=== PATIENT | male | born 1960 | race Caucasian/White ===

== ENCOUNTER 2018-01-31 01:26 | Outpatient (CLI) | payer MEDICAID, SELFPAY ==
[2018-01-31 08:29] LABS: Hemoglobin A1C 5.5 % (4.5-6.2)
[2018-01-31 09:29] LABS: ALT 39 U/L (12-78); AST 24 U/L (15-37); Albumin 3.9 g/dL (3.4-5.0); Alkaline Phosphatase 70 U/L (46-116); Bilirubin, Total 0.6 mg/dL (0.2-1.0); Cholesterol 119 mg/dL (50-200); HDL Cholesterol 41 mg/dL (40-60); LDL CHOLESTEROL 65 mg/dL (<100); Total Protein 6.6 g/dL (6.4-8.2); Triglyceride 111 mg/dL (30-150)
[2018-01-31 09:49] LABS: Bilirubin, Direct 0.14 mg/dL (0.00-0.20)
== END 2018-01-31 01:46 ==
PROVIDERS: PCP Emergency Medicine; Visit Provider Nurse Practitioner Family
DX: E78.2 Mixed hyperlipidemia (principal)
CPT/HCPCS: 36415; 80061; 80076; 83721; 83036

== ENCOUNTER 2018-02-03 00:40 | Outpatient (CLI) | payer MEDICAID, SELFPAY ==
--- NOTE | 2018-02-03 10:25 | MERGE_ITS ---
*[facility]* *[facility]* [address] [place] [address] Date of study: 02/03/2018 Transthoracic Echocardiography M-mode, complete 2D, complete spectral Doppler, and color Doppler *STUDY CONCLUSIONS* Summary: 1. Left ventricle: The cavity size was normal. Wall thickness was increased in a pattern of mild LVH. Systolic function was at the lower limits of normal. The estimated ejection fraction was 50-55%. Wall motion was normal; there were no regional wall motion abnormalities. Findings consistent with diastolic dysfunction. There was no evidence of elevated ventricular filling pressure by Doppler parameters. 2. Ventricular septum: Septal motion showed paradoxical motion consistent with post surgery. 3. Mitral valve: Moderate thickening, consistent with myxomatous proliferation. There was mild regurgitation. 4. Left atrium: The atrium was mildly dilated. 5. Right ventricle: The cavity size was normal. Wall thickness was normal. Systolic function was normal. 6. Right atrium: The atrium was mildly dilated. 7. Tricuspid valve: There was mild-moderate regurgitation. *PATIENT PRESENTATION* Height: 167.6cm ((66in) ) S/D Pressure: 117 / 70 Weight: 81.6kg ((179.6lb) ) BSA: 1.97m^2 Test start time: 10:35 AM. Test stop time: 11:35 AM. PERFORMING Unknown PERFORMING [facility] BRIM IRONER Shelia Ford RT (R)(CT), RDCS ORDERING Samy Hoskins REFERRING Samy Hoskins *PROCEDURE DATA* Procedure information: The patient was identified by two identifiers. This study was interpreted by [facility]. Pertinent images and digital data are archived for permanent storage and are available for subsequent review. No prior study was available for comparison. Study status: Routine. Transthoracic echocardiography. M-mode, complete 2D, complete spectral Doppler, and color Doppler. A Transthoracic Echocardiogram was performed. Scanning was performed from the parasternal, apical, subcostal, and suprasternal notch acoustic windows. Images were obtained using an [id number] cardiac ultrasound machine. Image quality was adequate. Study completion: The patient tolerated the procedure well. There were no complications. History: PMH: CAD. involving coronary bypass graft of [place] heart without angina pectoris. *CARDIAC ANATOMY* Left ventricle: The cavity size was normal. Wall thickness was increased in a pattern of mild LVH. Systolic function was at the lower limits of normal. The estimated ejection fraction was 50-55%. Wall motion was normal; there were no regional wall motion abnormalities. Findings consistent with diastolic dysfunction. There was no evidence of elevated ventricular filling pressure by Doppler parameters. Aortic valve: Trileaflet; mildly thickened leaflets. Mobility was not restricted. Doppler: Transvalvular velocity was within the normal range. There was no stenosis. There was no significant regurgitation. VTI ratio of LVOT to aortic valve: 0.67. Valve area (VTI): 2.4cm^2. Indexed valve area (VTI): 1.2cm^2/m^2. Peak velocity ratio of LVOT to aortic valve: 0.66. Valve area (Vmax): 2.4cm^2. Indexed valve area (Vmax): 1.2cm^2/m^2. Mean velocity ratio of LVOT to aortic valve: 0.71. Valve area (Vmean): 2.5cm^2. Indexed valve area (Vmean): 1.3cm^2/m^2. Mean gradient (S): 4.6mm Hg. Peak gradient (S): 8.3mm Hg. Aorta: Aortic root: The aortic root was normal in size. Ascending aorta: The ascending aorta was normal in size. Mitral valve: Moderate thickening, consistent with myxomatous proliferation. Mobility was not restricted. Doppler: Transvalvular velocity was within the normal range. There was no evidence for stenosis. There was mild regurgitation. Valve area by pressure half-time: 3.8cm^2. Indexed valve area by pressure half-time: 1.9cm^2/m^2. Peak gradient (D): 5.5mm Hg. Left atrium: The atrium was mildly dilated. Right ventricle: The cavity size was normal. Wall thickness was normal. Systolic function was normal. Ventricular septum: Septal motion showed paradoxical motion consistent with post surgery. Pulmonic valve: Structurally normal valve. Doppler: Transvalvular velocity was within the normal range. There was no evidence for stenosis. There was trivial regurgitation. Peak gradient (S): 3.2mm Hg. Tricuspid valve: Structurally normal valve. Doppler: Transvalvular velocity was within the normal range. There was no evidence for stenosis. There was mild-moderate regurgitation. Pulmonary artery: Pulmonary systolic pressure was within the normal range, in the range of 25mm Hg to 30mm Hg. Right atrium: The atrium was mildly dilated. Pericardium: There was no pericardial effusion. Systemic veins: Inferior vena cava: Well visualized. The vessel was patent and normal in size. The respirophasic diameter changes were in the normal range (greater than or equal to 50%). Baseline ECG: Sinus bradycardia. Measurements Left ventricle Value Reference LV ID, ED, PLAX 5.1 cm 3.5 - 6.0 LV ID, ES, PLAX 3.9 cm 2.1 - 4.0 LV PW thickness, ED, PLAX 1.1 cm LV end-diastolic volume, 1-p A2C 73 ml LV ejection fraction, 1-p A2C 52 % LV end-diastolic volume, 1-p A4C 85 ml LV ejection fraction, 1-p A4C 46 % LV e', lateral 0.143 m/sec LV E/e', lateral 8 LV e', medial 0.101 m/sec LV E/e', medial 12 LV e', average 0.122 m/sec LV E/e', average 10 Ventricular septum Value Reference IVS thickness, ED, PLAX 1.2 cm LVOT Value Reference LVOT ID, A-P 2.1 cm LVOT area 3.6 cm^2 LVOT peak velocity, S 0.95 m/sec LVOT mean velocity, S 0.71 m/sec LVOT VTI, S 21.7 cm LVOT peak gradient, S 3.6 mm Hg LVOT mean gradient, S 2.2 mm Hg Stroke volume (SV), LVOT DP 78 ml Stroke index (SV/bsa), LVOT DP 39 ml/m^2 Aortic valve Value Reference Aortic valve peak velocity, S 1.4 m/sec Aortic valve mean velocity, S 1.01 m/sec Aortic valve VTI, S 32.1 cm Aortic mean gradient, S 4.6 mm Hg Aortic peak gradient, S 8.3 mm Hg VTI ratio, LVOT/AV 0.67 Aortic valve area, VTI 2.4 cm^2 Velocity ratio, peak, LVOT/AV 0.66 Aortic valve area, peak velocity 2.4 cm^2 Velocity ratio, mean, LVOT/AV 0.71 Aortic valve area, mean velocity 2.5 cm^2 Aortic valve area/bsa, mean velocity 1.3 cm^2/m^2 Aorta Value Reference Aortic root ID, ED 3.1 cm Ascending aorta ID, A-P, S 3.1 cm RVOT Value Reference RVOT VTI, S 13.6 cm Left atrium Value Reference LA ID, A-P, ES 4.3 cm LA ID/bsa, A-P 2.2 cm/m^2 <=2.2 LA area, ES, A4C 21.7 cm^2 8.8 - 23.4 LA area, ES, A2C 22 cm^2 LA volume/bsa, ES, 1-p A4C 34 ml/m^2 LA volume, ES, 2-p 70 ml LA volume/bsa, ES, 2-p 36 ml/m^2 LA/aortic root ratio 1.4 Mitral valve Value Reference Mitral E-wave peak velocity 1.17 m/sec Mitral A-wave peak velocity 0.53 m/sec Mitral deceleration time 201 ms 150 - 230 Mitral pressure half-time 58 ms Mitral peak gradient, D 5.5 mm Hg Mitral E/A ratio, peak 2.19 Mitral valve area, PHT, DP 3.8 cm^2 Mitral peak LV-LA gradient, S 88.7 mm Hg Mitral maximal regurg velocity, PISA 4.71 m/sec Mitral regurg VTI, PISA 195.5 cm Pulmonary veins Value Reference Pulmonary vein peak velocity, S 0.49 m/sec Pulmonary vein peak velocity, D 0.52 m/sec Pulmonary vein velocity ratio, peak, 0.94 S/D Pulmonary vein A-wave reversal peak 0.34 m/sec velocity Pulmonary vein A-wave reversal 204 ms duration Tricuspid valve Value Reference Tricuspid regurg peak velocity 2.5 m/sec Tricuspid peak RV-RA gradient 25.5 mm Hg Right atrium Value Reference RA area, ES, A4C (H) 21.1 cm^2 8.3 - 19.5 Pulmonic valve Value Reference Pulmonic peak gradient, S 3.2 mm Hg Pulmonic regurg velocity, ED 0.89 m/sec Legend: (L) and (H) trent values outside specified reference range. I have personally reviewed the images and have reviewed and edited the reported findings. Electronically signed by Pieter Sam 02/03/2018 17:17
== END 2018-02-03 01:00 ==
PROVIDERS: PCP Emergency Medicine; Visit Provider Nurse Practitioner Family
DX: I25.810 Atherosclerosis of coronary artery bypass graft(s) without angina pectoris (principal); I50.30 Unspecified diastolic (congestive) heart failure; I51.7 Cardiomegaly; I08.1 Rheumatic disorders of both mitral and tricuspid valves
CPT/HCPCS: 93306

== ENCOUNTER 2018-04-26 06:37 | Emergency (ER) | payer MEDICAID, SELFPAY ==
[2018-04-26] VITALS (43 sets, daily range): BP systolic 114–133; BP diastolic 57–96; PULSE 54–88; RESP 13–18; TEMP 36.4–36.8; O2SAT 93–100
[2018-04-26] MEDS: Lactated Ringers 1,000 ML 200 ML IV (06:55)
[2018-04-26] MEDS: Ondansetron 4 MG/2 ML VIAL IVP (07:08)
--- NOTE | 2018-04-26 07:12 | ED.GENADUL_ITS ---
Discharge Plan Disposition Patient Disposition: HOME Condition: Improving Discharge Details Chief Complaint: Nausea/Vomit/Diar Clinical Impression: Acute viral syndrome Primary Care Provider: Rory Burnett ED Provider: Riley Juarez Home Meds and New Rx's Prescriptions: New ondansetron HCl [Zofran] 4 mg tablet 4 mg PO QID PRN (Reason: nausea and vomiting) Qty: 10 RF: 0 Continue aspirin [Aspirin Low-Strength] 81 MG tablet,chewable 1 tab PO DAILY RF: 0 pantoprazole [Protonix] 40 MG tablet,delayed release (DR/EC) 40 mg PO DAILY Qty: 90 RF: 4 atorvastatin 80 MG tablet 80 mg PO DAILY Qty: 90 RF: 3 metoprolol succinate [Toprol XL] 200 mg tablet extended release 24 hr 100 mg PO DAILY Qty: 90 RF: 3 Discharge Instructions Instructions: Viral Syndrome (ED) Additional Instructions: Home to rest today. Small, frequent sips of fluids to maintain hydration. Zofran as needed for nausea. Return if you do not improve, have worsening symptoms, or any other acute concerns per Medical Decision Making <Hunter Preciado MD - Last Filed: 04/26/18 07:52> Patient presenting with chills, nausea, vomiting with onset of congestion and cough yesterday. He is not febrile here. He is not having any pain. He did not get a flu shot this year. His EKG is without acute changes. Will place IV and give fluids and Zofran. We will send a flu swab. Will check laboratory studies including troponin but I do not think this is likely related to a cardiac event. We will check a chest x-ray due to cough and chills. Patient feels much better after Zofran and fluids. Laboratory studies un remarkable. Troponin negative. Rapid flu swab is negative. Chest x-ray per my review is negative. Pending radiology read. Again, doubt this was cardiac in nature but given his previous history we will do a second troponin to be safe. If negative and patient continues to feel well can be discharged. Patient signed over to Dr. Juarez. Medical Records Medical records reviewed: Yes I reviewed the patient's medical records. Lab Data Lab results reviewed: Yes I reviewed the patient's lab results. ECG Data Attestation: I personally reviewed and interpreted this ECG (s) as follows: Prior ECG tracings: available for review Interpretation: Sinus bradycardia at 57. Normal intervals and axis. Evidence of old inferior infarct. No acute ST changes. Compared to previous EKG no STEMI present. <Riley Juarez MD - Last Filed: 04/26/18 10:24> Received signout from Dr. Preciado. Please see his note regarding details of the history, presentation, plan of care. Patient subjectively felt better, he was able to eat a breakfast meal, his repeat troponin was obtained and negative. Will offer Zofran for home. Patient likely has viral syndrome. Stable for discharge at this time. Return precautions were discussed at the bedside. HPI <Hunter Preciado MD - Last Filed: 04/26/18 07:52> General Mode of arrival: wheelchair . Date/Time Provider Initiated Documentation: 04/26/18 06:53 . Limitations to Documentation: no limitations . Information obtained by: patient . HPI Narrative: Patient presents to ED with chills, nausea, vomiting that started this morning. [place] like he was coming down with a cold yesterday with a little cough and congestion. This morning he woke up and has had nausea and vomiting as well as chills. Does not feel like his cold symptoms are worse. He denies having pain anywhere. He does not feel short of breath. He has had no diarrhea. He did not get a flu shot this year. Related Data Home Medications Medication Instructions Recorded Confirmed aspirin [Aspirin Low-Strength] 1 tab PO DAILY tab-cap 07/20/12 04/26/18 pantoprazole [Protonix] 40 mg PO DAILY #90 tab-cap 04/20/16 04/26/18 atorvastatin 80 mg PO DAILY #90 tab-cap 04/13/17 04/26/18 metoprolol succinate ER 200 mg 100 mg PO DAILY #90 tab-cap 04/14/18 04/26/18 tablet,extended release 24 hr ondansetron HCl [Zofran] 4 mg PO QID PRN #10 tab 04/26/18 Previous Rx's Medication Instructions Recorded atorvastatin 80 mg PO DAILY #90 tab-cap 04/13/17 ondansetron HCl [Zofran] 4 mg PO QID PRN #10 tab 04/26/18 Allergies Allergy/AdvReac Type Severity Reaction Status Date / Time sertraline HCl [From Zoloft] AdvReac Severe vomitting Unverified 04/26/18 06:48 hydrochlorothiazide AdvReac dizziness Unverified 04/26/18 06:48 lisinopril AdvReac cough Unverified 04/26/18 06:48 prednisolone AdvReac bloating Unverified 04/26/18 06:48 simvastatin AdvReac increaseds Unverified 04/26/18 06:48 CK General Stated Complaint: Nausea/Vomit/Diar NAILA: 3 Review of Systems <Hunter Preciado MD - Last Filed: 04/26/18 07:52> Constitutional Reports chills, Denies fever(s), Denies headache(s), Denies malaise and Denies weakness Eyes Denies change in vision, Denies eye discharge, Denies irritation and Denies eye pain ENT Denies otalgia, Denies facial pain, Denies headache(s), Reports nasal congestion, Denies neck pain and Denies sore throat Cardiovascular Denies chest pain, Denies pedal edema, Denies edema, Denies leg edema, Denies lightheadedness, Denies palpitations and Denies dyspnea Respiratory Reports cough and Denies dyspnea Gastrointestinal Denies abdominal pain, Denies diarrhea, Reports nausea and Reports vomiting Genitourinary Denies hematuria, Denies difficulty urinating, Denies dysuria, Denies urinary frequency and Denies urinary urgency Musculoskeletal Denies back pain, Denies myalgias, Denies arthralgias, Denies joint swelling, Denies neck pain and Denies numbness Integumentary/Breasts Denies erythema and Denies rash Neurologic Denies confusion, Denies headache(s), Denies numbness and Denies weakness Psychiatric Denies confusion Endocrine Denies palpitations Exam <Hunter Preciado MD - Last Filed: 04/26/18 07:52> Const General: cooperative, uncomfortable (shivering) and no acute distress Orientation: alert and oriented x3 HENMT Head: normocephalic and atraumatic Mouth: moist mucous membranes Throat: posterior oropharynx abnormal cobblestoning and erythema (mild) Eyes Conjunctivae: conjunctivae normal Pupils: PERRL EOM: EOM intact bilaterally Neck Neck: full ROM, no lymphadenopathy, trachea midline and supple Resp Effort & Inspection: normal respiratory effort Auscultation: clear to auscultation bilaterally Cardio Rate: regular rate Rhythm: regular rhythm Heart Sounds: S1 normal and S2 normal Pulses: normal peripheral pulses GI Inspection: non-distended Palpation: soft, not firm, no guarding and nontender Skin General skin exam: no erythema Rashes: no rashes Trauma: no lacerations or abrasions Other: warm and dry Neuro General: alert, oriented x3, no focal motor deficits and CN's II-XI intact bilaterally Cognition: normal cognition Speech: speech normal Sensory Exam: no sensory deficits noted Extrem General: normal to inspection, full ROM and no clubbing, cyanosis or edema Psych Appearance: grossly normal Mental Status: mental status grossly normal Affect: normal affect Attitude: cooperative Course <Hunter Preciado MD - Last Filed: 04/26/18 07:52> Vital Signs Temperature 97.9 F 04/26/18 06:44 Pulse 74 04/26/18 06:44 Respiratory Rate 18 04/26/18 06:44 Blood Pressure 133/96 H 04/26/18 06:44 Pulse Oximetry 99 04/26/18 06:44 Temperature 97.5 F L 04/26/18 06:51 Temperature Source Oral 04/26/18 06:51 Pulse 74 04/26/18 06:44 Respiratory Rate 18 04/26/18 06:44 Respiratory Effort Non-Labored 04/26/18 06:47 Blood Pressure 133/96 H 04/26/18 06:44 Blood Pressure Position Supine 04/26/18 06:44 Pulse Oximetry 99 04/26/18 06:44 Oxygen Delivery Method Room Air 04/26/18 06:44 Oxygen Flow Rate 0 04/26/18 06:44 Pain Level 0 04/26/18 06:44 Lab/Test Results Lab/Test Results: 04/26/18 07:02 Nasopharynx Influenza Types A,B Antigen - Pending Sign Out <Hunter Preciado MD - Last Filed: 04/26/18 07:52> Sign Out Data: Sign Out Comment: pending second troponin and po challenge Last updated by Hunter Preciado MD at 04/26/18 07:53
[2018-04-26 07:13] LABS: Abs Immature Grans 0.01 k/cumm (0.0-0.09); Absolute Basophil Count 0.03 k/cumm (0.0-0.2); Absolute Eosinophil Count 0.16 k/cumm (0.0-0.7); Absolute Lymphocyte Count 1.87 k/cumm (1.2-3.4); Absolute Monocyte Count 0.51 k/cumm (0.11-0.7); Absolute Neutrophil Count 4.18 k/cumm (1.2-6.7); Basophils % 0.4; Eosinophils % 2.4; HCT 44.4 % (40.0-50.0); HGB 15.5 g/dL (13.5-17.5); Immature Grans % 0.1; Lymphocytes % 27.7; Mean Corp. HGB Concentration 34.9 g/dL (32.0-36.0); Mean Corpuscular Hemoglobin 33.3 pg (27.0-33.0); Mean Corpuscular Volume 95.5 fL (80-95); Monocytes % 7.5; Neutrophils % 61.9; Platelet Count 191 x1000/uL (130-400); RBC 4.65 m/cumm (4.50-6.00); RBC Distribution Width 12.2 % (11.8-14.1); White Blood Cell Count 6.76 k/cumm (4.4-10.8)
--- NOTE | 2018-04-26 07:27 | DI.RAD_ITS ---
SYMPTOM/DIAGNOSIS: COUGH, CHILLS PA AND LATERAL CHEST: Comparison is made with 07 Apr 2017. The heart size is normal. The patient is status post CABG. The lungs are well inflated and clear. No infiltrate or effusion is seen. IMPRESSION: No acute abnormality.
[2018-04-26 07:28] LABS: ALT 42 U/L (12-78); AST 24 U/L (15-37); Albumin 4.2 g/dL (3.4-5.0); Alkaline Phosphatase 67 U/L (46-116); Anion Gap 9.8 mmol/L (3-11); BUN 17 mg/dL (7-18); Bilirubin, Total 0.5 mg/dL (0.2-1.0); CO2 28.2 mmol/L (21.0-32.0); CREATININE 1.01 mg/dL (0.70-1.30); Calcium 8.9 mg/dL (8.5-10.1); Chloride 102 mmol/L (98-107); Glucose 140 mg/dL (70-100); Magnesium 1.8 mg/dL (1.8-2.4); Potassium 3.8 mmol/L (3.5-5.1); Sodium 140 mmol/L (136-145); Total Protein 7.3 g/dL (6.4-8.2)
[2018-04-26 07:30] LABS: Troponin I < 0.02 ng/mL (0.00-0.06)
--- NOTE | 2018-04-26 07:59 | DI.VRAD_ITS ---
EXAM: XR Chest, 2 Views EXAM DATE/TIME: 04/26/2018 7:28 AM CLINICAL HISTORY: 57 years old, male; Signs and symptoms; Cough TECHNIQUE: XR of the chest, 2 views. COMPARISON: CR CHEST 2 VIEWS PA,LAT 04/07/2017 10:32 AM FINDINGS: Lungs: Unremarkable. No consolidation. Pleural space: Unremarkable. No pleural effusion. No pneumothorax. Heart/Mediastinum: Unremarkable. No cardiomegaly. Bones/joints: Median sternotomy wires noted IMPRESSION: No acute findings Dictated and Authenticated by: Higinio Adams MD. Ordering:DANIELE HERNANDEZ MD
--- NOTE | 2018-04-26 09:10 | NUR.NOTE ---
Pt. ambulated to restroom, steady gait in NAD.
[2018-04-26 10:08] LABS: Troponin I < 0.02 ng/mL (0.00-0.06)
== END 2018-04-26 10:37 | disposition home or self-care (01) ==
PROVIDERS: Emergency Medicine; Emergency Provider Emergency Medicine; PCP Emergency Medicine
DX: R11.2 Nausea with vomiting, unspecified (principal); R19.7 Diarrhea, unspecified; R05 Cough; R68.83 Chills (without fever); B34.9 Viral infection, unspecified; I10 Essential (primary) hypertension
CPT/HCPCS: 36415; 80053; 87449; 93005; 96361; 96374; 99285; 71046; 83735; 84484; 85025; 93010; 99284; J2405

== ENCOUNTER 2018-05-16 00:02 | Outpatient (CLI) | payer MEDICAID, SELFPAY ==
--- NOTE | 2018-05-16 08:15 | MERGEMPI_ITS ---
*[facility]* *[facility]* [address] [place] [address] Myocardial Perfusion Imaging - SPECT Fabian protocol Date of study: 05/16/2018 *PATIENT PRESENTATION* Height: 167.6cm (66in) Blood Pressure: Weight: 78.6kg (173lb) BSA: 1.93m^2 Referring physician: Kenroy Bose Ordering physician: Kenroy Bose Impressions: - Abnormal study after maximal exercise. - Small ischemia suggested. - Abnormal contraction consistent with cardiomyopathy. Summary: 1. Myocardial perfusion imaging: There is a small sized, moderately intense, predominantly reversible defect involving the basal inferior wall(s). This suggests small ischemia in the distribution of the right coronary artery. Overall ischemia: small. 2. The calculated left ventricular ejection fraction after stress: 40%. Diffuse left ventricular regional motion abnormalities. There is moderate hypokinesis involving the septal wall(s) of the left ventricle. Indication: R06.02. History: REASON FOR VISIT: EXERTIONAL SHORTNESS OF BREATH. PT HAS A HISTORY OF TX WITH CARDIAC STENTS X2 IN 2007 AND CABG IN 2016. HE IS A FORMER SMOKER, QUIT 25 YEARS AGO. Risk factors: FORMER SMOKER FOR 25 YEARS. QUIT 25 YEARS AGO. Family history of coronary artery disease. Hypertension. Dyslipidemia. Cholesterol: 119mg/dl. HDL: 41mg/dl. LDL: 65mg/dl. Triglycerides: 111mg/dl. ALLERGIES: ZOLOFT. HYDROCHLOROTHIAZIDE. LISINOPRIL. PREDNISOLONE. SIMVASTATIN. MEDICATIONS: ATORVASTATIN 80 MG AT HS. METOPROLOL SUCCINATE 100 MG DAILY. ASPIRIN 81 MG DAILY. PANTOPRAZOLE 40 MG DAILY PRN. Imaging Technique: Protocol: Fabian protocol. Acquisition: Gated SPECT; 1 day - rest/stress. The patient was imaged in the supine position. Attenuation correction used. Isotope administration: - Rest. Tc[99m]-sestamibi. Dose: 10.5mCi. Injection time: 08:15 AM. Injection to stress time: 00:45. - Stress. Tc[99m]-sestamibi. Dose: 29.3mCi. Injection time: 10:30 AM. 1-2 min before end of exercise Baseline ECG: SINUS RHYTHM. HR 72 BPM. Stress protocol: + +---+ + !Stage !HR !BP (mmHg) ! + +---+ + !Baseline supine !72 !132/70 (91) ! + +---+ + !Baseline standing !83 !132/74 (93) ! + +---+ + !Stage I; 1.7mph, 10degrees; 3 min !106!140/76 (97) ! + +---+ + !Stage II; 2.5mph, 12degrees; 3 min !128!142/84 (103)! + +---+ + !Stage III; 3.4mph, 14degrees; 3 min!162!160/76 (104)! + +---+ + !Peak stress !164! ! + +---+ + !Recovery; 1 min !118!162/74 (103)! + +---+ + !Recovery; 3 min !89 !150/70 (97) ! + +---+ + !Recovery; 6 min !87 !138/70 (93) ! + +---+ + * Stress results: Maximal heart rate during stress was 164bpm (101% of maximal predicted heart rate). The maximal predicted heart rate was 162bpm. The rate-pressure product for the peak heart rate and blood pressure was 65814ok Hg/min. Stress ECG: TREADMILL PORTION OF STRESS TEST ENDED IN HEART RATE AND BLOOD PRESSURE RESPONSE TO STRESS TEST MAX HR = 164 % OF TARGET = 101 RARE PVCs. Q-WAVES PRESENT & PROMINENT IN INFERIOR LEADS. APPROXIMATE METS ACHIEVED = 10.16 NO ANGINA NO SIGNIFICANT ST SEGMENT CHANGES AVERAGE FUNCTIONAL CAPACITY FOR EXERCISE. Myocardial perfusion: Imaging information: gated. There is a small sized, moderately intense, predominantly reversible defect involving the basal inferior wall(s). This suggests small ischemia in the distribution of the right coronary artery. Overall ischemia: small. Ventricular Function (Wall Motion): The calculated left ventricular ejection fraction after stress: 40%. Diffuse left ventricular regional motion abnormalities. There is moderate hypokinesis involving the septal wall(s) of the left ventricle. Study data: Mikhail Chapman MD supervised and was readily available during the procedure. This study was interpreted by [facility]. Study status: Routine. Consent: The risks, benefits, and alternatives to the procedure were explained to the patient and informed consent was obtained. Procedure: Initial setup. A baseline ECG was recorded. Surface ECG leads and manual cuff blood pressure measurements were monitored. Heart sounds: Normal. Lung sounds: Normal. Treadmill exercise testing was performed using the Fabian protocol. Study completion: All catheters inserted during the procedure were removed. The patient tolerated the procedure well and was discharged from the lab. Discharge: The patient left the laboratory in stable condition. Birthdate: Patient birthdate: 1960. Sex: Gender: male. Study date: Study date: 05/16/2018. Study time: 08:15 AM. Electronically signed by Mikhail Chapman MD 05/16/2018 16:48
== END 2018-05-16 00:22 ==
PROVIDERS: PCP Emergency Medicine; Visit Provider Internal Medicine Cardiovascular Disease
DX: R06.02 Shortness of breath (principal); I10 Essential (primary) hypertension; R94.30 Abnormal result of cardiovascular function study, unspecified; E78.5 Hyperlipidemia, unspecified; I42.9 Cardiomyopathy, unspecified; I25.2 Old myocardial infarction; Z95.1 Presence of aortocoronary bypass graft; Z82.49 Family history of ischemic heart disease and other diseases of the circulatory system
CPT/HCPCS: 78452; 93016; 93018; 93017

== ENCOUNTER 2019-05-26 07:00 | Outpatient (CLI) | payer MEDICAID, SELFPAY ==
[2019-05-26 13:11] LABS: Anion Gap 7.8 mmol/L (3-11); BUN 17 mg/dL (7-18); CO2 28.2 mmol/L (21.0-32.0); CREATININE 0.95 mg/dL (0.70-1.30); Calculated LDL 89 mg/dL; Chloride 106 mmol/L (98-107); Cholesterol 148 mg/dL (<200); Glucose 88 mg/dL (74-106); HDL Cholesterol 42 mg/dL (40-60); Potassium 4.1 mmol/L (3.5-5.1); Sodium 142 mmol/L (136-145); Triglyceride 86 mg/dL (<150)
== END 2019-05-26 07:20 ==
PROVIDERS: PCP Emergency Medicine; Visit Provider Emergency Medicine
DX: I10 Essential (primary) hypertension (principal); I25.10 Atherosclerotic heart disease of native coronary artery without angina pectoris
CPT/HCPCS: 36415; 80048; 80061

== ENCOUNTER 2020-05-31 02:23 | Outpatient (CLI) | payer MEDICAID, SELFPAY ==
[2020-05-31 10:37] LABS: HCT 43.1 % (40.0-50.0); MCH 32.9 pg (27.0-33.0); MCHC 34.8 % (32.0-36.0); MCV 94.5 fL (80-95); MPV 8.6 fL (8.0-11.0); Platelet Count 202 10^3/uL (130-400); RBC 4.56 10^6/uL (4.36-5.78); RDW 11.9 % (11.8-14.1); RDW-SD 41.1 fL; WBC 7.12 10^3/uL (4.4-10.8)
[2020-05-31 11:23] LABS: Calculated LDL 84 mg/dL (<100); Cholesterol 154 mg/dL (<200); HDL Cholesterol 48 mg/dL (40-60); Triglyceride 112 mg/dL (<150)
== END 2020-05-31 02:43 ==
PROVIDERS: PCP Emergency Medicine; Visit Provider Emergency Medicine
DX: I25.10 Atherosclerotic heart disease of native coronary artery without angina pectoris (principal); M54.5 Low back pain; M47.816 Spondylosis without myelopathy or radiculopathy, lumbar region
CPT/HCPCS: 36415; 80061; 85027; 72110

== ENCOUNTER 2020-05-31 04:44 | Outpatient (CLI) | payer MEDICAID, SELFPAY ==
--- NOTE | 2020-05-31 06:30 | DI.RAD_ITS ---
EXAM: XR LUMBAR SPINE COMPLETE CLINICAL HISTORY: chronic low back pain,M54.5. TECHNIQUE: 2D digital imaging was performed. COMPARISON: CR LUMBAR SPINE COMPLETE from 04/07/2017 FINDINGS: There is mild scoliosis convex right again noted. There is no evidence compression fracture. There is mild degenerative anterolisthesis of L4 upon L5 and mild disc space narrowing at this level noted as well as anterior osseous lipping. There is mild disc space narrowing and anterior osseous lipping also evident at L5-S1. Other disc spaces maintain normal height blood with multilevel anterior osseous lipping. There is no significant facet arthrop athy. Sacroiliac joints appear unremarkable. IMPRESSION: Further progression of degenerative disc disease when compared to 2017. Also mild degenerative anter olisthesis of L4 upon L5, seen on the lateral view. If clinically indicated flexion and extension la teral views can be performed to determine the true amount of anterior slippage of L4 upon L5 during e veryday activities. DATA REPOSITORY: RADIATION DOSE DELIVERED:
== END 2020-05-31 05:04 ==
PROVIDERS: PCP Emergency Medicine; Visit Provider Emergency Medicine
DX: G89.29 Other chronic pain (principal); M54.5 Low back pain; M47.816 Spondylosis without myelopathy or radiculopathy, lumbar region; M43.16 Spondylolisthesis, lumbar region
CPT/HCPCS: 72110

== ENCOUNTER 2020-08-06 02:10 | Outpatient (CLI) | payer MEDICAID, SELFPAY ==
--- NOTE | 2020-08-06 06:45 | DI.MRI_ITS ---
EXAM: MR LUMBAR SPINE WO CLINICAL HISTORY: Symptomatic spondylolisthesis,m43.10. TECHNIQUE: Multiplanar multisequence MRI of the Lumbar spine was performed. COMPARISON: CR XR LUMBAR SPINE COMPLETE from 05/31/2020 FINDINGS: Bones: The last intervertebral disc space is designated the L5/S1 level for the numbering purpose of this examination. The vertebral body heights are well maintained. There is a mild right convex scol iosis. There are endplate degenerative signal changes at multiple levels of the lumbar spine. Cord: The conus tip ends at the L1 level. It is of normal size and signal intensity. T12-L1: No disc herniations or bulges are present. No central spinal canal or neural foraminal stenos is. L1-2: No disc herniations or bulges are present. No central spinal canal or neural foraminal stenosis . L2-3: There is a mild diffuse disc bulge. No central spinal canal or neural foraminal stenosis. L3-4: There is a diffuse disc bulge. There are hypertrophic changes of the facets. There is mild na rrowing of the central spinal canal. There is mild narrowing of the left neural foramen. No signifi cant right neural foraminal stenosis is present. L4-5: There is a diffuse disc bulge. There are hypertrophic changes of the facets. There is mild na rrowing of the central spinal canal. No significant right neural foraminal stenosis is seen. There is moderate left neural foraminal stenosis. L5-S1: There is a diffuse disc bulge eccentric to the right. There are hypertrophic changes of the f acets. No significant central spinal canal stenosis is seen. Mild right neural foraminal stenosis i s present. No significant left neural foraminal stenosis is seen. Soft tissues: The visualized SI joints and sacrum are well maintained. The paraspinal soft tissues ar e unremarkable. IMPRESSION: Multilevel degenerative changes in the lumbar spine. Findings result in multilevel central spinal ca nal and neural foraminal narrowing as described. DATA REPOSITORY:
== END 2020-08-06 02:30 ==
PROVIDERS: PCP Emergency Medicine; Visit Provider Emergency Medicine
DX: M47.816 Spondylosis without myelopathy or radiculopathy, lumbar region (principal); M48.061 Spinal stenosis, lumbar region without neurogenic claudication
CPT/HCPCS: 72148

== ENCOUNTER 2020-10-24 01:53 | Outpatient (CLI) | payer MEDICAID, SELFPAY ==
--- NOTE | 2020-10-24 | DI.MRI_ITS ---
Exam(s) MR PELVIS WO EXAM: MR PELVIS WO CLINICAL HISTORY: RT HIP PAIN,M25.551,NEG HIP MANEUVER TECHNIQUE: Multiplanar multisequence MRI of Pelvis was performed. . COMPARISON: CR LUMBAR SPINE COMPLETE from 04/07/2017 CR LUMBAR SPINE COMPLETE from 04/07/2017 CR XR LUMBAR SPINE COMPLETE from 05/31/2020 CR XR LUMBAR SPINE COMPLETE from 05/31/2020 MR MR LUMBAR SPINE WO from 08/06/2020 MR MR LUMBAR SPINE WO from 08/06/2020 FINDINGS: Bones: There is no fracture or contusion pattern. No significant joint effusion. The SI joints are unremarkable. There is mild edema at the pubic symphysis but no evidence of widening. There are deg enerative changes and a small amount of surrounding soft tissue edema. Musculotendinous structures: Musculotendinous structures demonstrate no evidence of tear. Degenerative changes are noted in the lumbar bar spine. Intrapelvic structures demonstrate no significant abnormality. Small bilateral hydroceles are incidentally noted. There is a small amount of fat in both inguinal c anals. IMPRESSION: Mild amount of edema around the pubic symphysis and degenerative spurring.. Right hip unremarkable. Degenerative changes of the lower lumbar spine. DATA REPOSITORY:
== END 2020-10-24 02:13 ==
PROVIDERS: PCP Emergency Medicine; Visit Provider Neurological Surgery
DX: M25.551 Pain in right hip (principal); R60.0 Localized edema; M79.89 Other specified soft tissue disorders
CPT/HCPCS: 72195

== ENCOUNTER 2021-01-15 08:44 | Outpatient (REF) | payer MEDICAID, SELFPAY ==
[2021-01-22 00:20] LABS: Calprotectin 33.3 mcg/g
== END 2021-01-15 08:45 | disposition home or self-care (01) ==
LOC: LBN 08:44
PROVIDERS: PCP Emergency Medicine; Visit Provider Internal Medicine
DX: M79.641 Pain in right hand (principal); M79.642 Pain in left hand; M25.531 Pain in right wrist; M25.532 Pain in left wrist; R19.7 Diarrhea, unspecified
CPT/HCPCS: 83993

== ENCOUNTER 2021-07-25 03:59 | Outpatient (CLI) | payer MEDICAID, SELFPAY ==
[2021-07-25 09:01] LABS: ALT 30 U/L (16-63); Anion Gap 9.3 mmol/L (3-11); BUN 16 mg/dL (7-18); CO2 24.7 mmol/L (21.0-32.0); Calcium 8.9 mg/dL (8.5-10.1); Calculated LDL 70 mg/dL (<100); Chloride 106 mmol/L (98-107); Cholesterol 135 mg/dL (<200); Glucose 109 mg/dL (74-106); HDL Cholesterol 38 mg/dL (40-60); Potassium 4.3 mmol/L (3.5-5.1); Sodium 140 mmol/L (136-145); Triglyceride 137 mg/dL (<150)
[2021-07-25 18:22] LABS: PSA, Screening 0.3 ng/mL (0.0-4.5)
[2021-07-26 09:54] LABS: HIV-1/2 Ag & Ab Screen Negative (Negative)
[2021-07-28 11:46] LABS: Hepatitis C Ab w Rflx HCV PCR Negative (Negative)
== END 2021-07-25 04:00 | disposition home or self-care (01) ==
LOC: LBO 04:00
PROVIDERS: PCP Family Medicine; Visit Provider Family Medicine
DX: E78.5 Hyperlipidemia, unspecified (principal); I25.10 Atherosclerotic heart disease of native coronary artery without angina pectoris; Z11.59 Encounter for screening for other viral diseases; Z12.5 Encounter for screening for malignant neoplasm of prostate; Z11.4 Encounter for screening for human immunodeficiency virus [HIV]
CPT/HCPCS: 36415; 80048; 80061; 84153; 86803; 87389; 84460

== ENCOUNTER 2021-11-02 10:41 | Emergency (ER) | payer MEDICAID, SELFPAY ==
[2021-11-02 10:47] VITALS: BP 123/80; PULSE 80; RESP 16; TEMP 36.8; O2SAT 97
--- NOTE | 2021-11-02 10:54 | W.ED.GENAD ---
Discharge Plan Disposition Patient Disposition: HOME Condition: Stable Discharge Details Clinical Impression: Laceration of left thumb Primary Care Provider: Angelita Rasheed ED Provider: Veronique Costa Home Meds and New Rx's Prescriptions: New cephalexin 500 mg tablet 500 mg PO BID 7 Days Qty: 14 0RF No Action aspirin [Aspirin Low-Strength] 81 MG tablet,chewable 1 tab PO DAILY atorvastatin 80 mg tablet 80 mg PO DAILY Qty: 90 3RF omeprazole 40 mg capsule,delayed release(DR/EC) 40 mg PO DAILY Qty: 90 3RF Discharge Instructions Instructions: Laceration (ED) Additional Instructions: Have sutures removed in 7 to 10 days. Keep the dressing on for the rest of the day. After 12 to 24 hours you may wash under running soap and water. No soaking or swimming. Keep clean and dry as much as possible. Allowed to air dry at least 1 to 2 hours a day. Take antibiotic twice daily as directed for the next 7 days. Your first dose here. You are also given a tetanus vaccination. Return sooner for any signs of infection, red streaks, swelling drainage or any concerns. Referrals: Angelita Rasheed NP [Primary Care Provider] - Return if symptoms worsen Discharge Data Discharge Date/Time-TO BE ENTERED AT DEPARTURE: 11/02/21 12:35 Medical Decision Making <Veronique Costa NP - Last Filed: 11/02/21 16:18> 61-year-old male presents to the ER with chief complaint left thumb laceration which occurred approximately hour prior to arrival while cooking including chickens. Patient reports that he was holding the knife with his right hand and accidentally stabbed his left thumb with a knife. Last tetanus vaccination according to our records was approximately 10 years ago. He attempted to sew the laceration himself with a needle and thread at home and have a neighbor superglue it which was unsuccessful. They were unable to control the bleeding. Does have venous ooze noted upon arrival. There is a dressing that he placed. Bleeding is controlled with pressure. No other associated symptoms or complaints at this time. He does take a low-dose baby aspirin daily. Approximately 1 cm laceration noted to the lateral aspect of his distal left thumb just adjacent to the nail. No nail involvement. Bleeding was controlled with a turnicot, for sided ring block initiated prior to turnicot application. Thumb was extensively cleaned and superglue was removed in personality. 6 simple interrupted sutures placed. Patient reports that he is planning on going back to the chickens and the treatment chickens after he leaves here. Xeroform gauze and pressure dressing was applied post repair. Wound was well approximated and some low venous ooze noted after turnicot removal. Hemostasis was achieved prior to discharge. Patient was given a tetanus vaccination while here in the department and placed on cephalexin twice daily x7 days. Discussed home care strict return instructions and follow-up verbalized understanding. Range of motion intact prior to procedure and postprocedure. <Clayton Trammell MD - Last Filed: 11/02/21 12:07> Note: Patient seen, examined, and discussed with MARCI Moya. I agree with treatment plan as discussed/documented. HPI <Veronique Costa NP - Last Filed: 11/02/21 16:18> General Mode of arrival: ambulatory. Date/Time Provider Initiated Documentation: 11/02/21 10:43. Limitations to Documentation: no limitations. Information obtained by: patient, RN notes reviewed and old records reviewed. HPI Narrative: 61-year-old male presents to the ER with chief complaint left thumb laceration which occurred approximately hour prior to arrival while cooking including chickens. Patient reports that he was holding the knife with his right hand and accidentally stabbed his left thumb with a knife. Last tetanus vaccination according to our records was approximately 10 years ago. He attempted to sew the laceration himself with a needle and thread at home and have a neighbor superglue it which was unsuccessful. They were unable to control the bleeding. Does have venous ooze noted upon arrival. There is a dressing that he placed. Bleeding is controlled with pressure. No other associated symptoms or complaints at this time. He does take a low-dose baby aspirin daily. Related Data Home Medications Medication Instructions Recorded Confirmed aspirin 81 mg chewable tablet 1 tab PO DAILY 07/20/12 11/02/21 (Aspirin Low-Strength) atorvastatin 80 mg tablet 80 mg PO DAILY #90 tab-caps 03/10/21 11/02/21 omeprazole 40 mg capsule,delayed 40 mg PO DAILY #90 caps 04/29/21 11/02/21 release cephalexin 500 mg tablet 500 mg PO BID 7 days #14 tabs 11/02/21 Previous Rx's Medication Instructions Recorded atorvastatin 80 mg tablet 80 mg PO DAILY #90 tab-caps 03/10/21 omeprazole 40 mg capsule,delayed 40 mg PO DAILY #90 caps 04/29/21 release cephalexin 500 mg tablet 500 mg PO BID 7 days #14 tabs 11/02/21 Allergies Allergy/AdvReac Type Severity Reaction Status Date / Time lactose Allergy Verified 11/02/21 10:51 sertraline HCl [From Zoloft] AdvReac Severe vomitting Verified 11/02/21 10:51 hydrochlorothiazide AdvReac dizziness Verified 11/02/21 10:51 lisinopril AdvReac cough Verified 11/02/21 10:51 prednisolone AdvReac bloating Verified 11/02/21 10:51 simvastatin AdvReac increaseds Verified 11/02/21 10:51 CK General Stated Complaint: Laceration NAILA: 4 Review of Systems <Veronique Costa NP - Last Filed: 11/02/21 16:18> Integumentary/Breasts Skin/Breast: Reports as per HPI and Reports wounds PFSH <Veronique Costa NP - Last Filed: 11/02/21 16:18> All Active Problems (Updated 11/02/21 @ 11:45 by Veronique Costa NP) Laceration of left thumb (Acute) COVID-19 (Acute) 2020-associated with loss of taste and smell BRET (obstructive sleep apnea) (Chronic) Sensorineural hearing loss (SNHL) of both ears (Acute) Lactose intolerance (Acute) Spondylolisthesis (Acute) Dysphagia (Acute) Endoscopy at [facility] Low back pain (Acute) althetic pubalgia, on my back-pain clinic at [facility]-status post multiple ablations which have been helpful, little benefit with physical therapy in the past Migraine with aura (Acute) Hyperlipidemia (Chronic 07/20/12) History of tobacco use (Acute) Gastroesophageal reflux disease (Chronic) Essential hypertension (Chronic 04/10/13) Colonoscopy refused (Acute 01/02/15) Atherosclerosis of koi coronary artery (Chronic) stent x 2 2006 IMI 04/01. RCA dissection during cath procedure 2 vessel CABG 04/02/16. LV wall hypokinesis EF 50-55% Medical History (Updated 11/02/21 @ 11:45 by Veronique Costa NP) Dysphagia Heart attack 2006 Surgical History Rotator Cuff Repair 2008;JULIAN S/P CABG (coronary artery bypass graft) Stent placement 2006; [facility];X2 Family History Mother , 72 Essential hypertension Hyperlipidemia Stroke Brain aneurysm Father , 88 Essential hypertension Heart disease Sister Essential hypertension Hyperlipidemia Brother Essential hypertension Hyperlipidemia Grandfather Stroke Daughter No problems noted. Social History (Updated 01/07/21 @ 15:38 by Kristi Smith) Smoking/Tobacco Use Status: Former Tobacco Use tobacco type: cigarettes Quit Date: 05/17/94 Tobacco: How many years used: 26 Second Hand Exposure: Yes Smoking risk assessment performed?: Yes Alcohol Intake: former Drug use: Occasionally Substance use type: marijuana Household members: spouse Housing: house Number of Children: 1 Communication Needs: Hard of Hearing and Corrective Lenses Do you need help understanding health information?: Always Pets and animals: Yes Pets and animals: cat(s) and dog(s) Sexually active: Yes Do you think of yourself as: straight/heterosexual Current gender identity: male What is your relationship status?: How often do you talk on the phone with friends or family?: once per week How often do you get together with friends or relatives?: once per week Do you belong to any clubs or organized social groups?: no Panel score (0-1 are the most socially isolated patients): 1 Duration: < 15 minutes/day Elinor/Rastafari: None Special elinor needs: No Seatbelt use: never Helmet use: Yes Helmet use: sometimes Drive intox or ride w/intox 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 1 cm laceration noted with flap, and slow venous bleeding. Surrounded by superglue, removed with scraping and petroleum. Course <Veronique Costa NP - Last Filed: 11/02/21 16:18> Vital Signs Vital signs: Vital Signs Temperature 36.8 C 11/02/21 10:47 Pulse 80 11/02/21 10:47 Respiratory Rate 16 11/02/21 10:47 Blood Pressure 123/80 11/02/21 10:47 Pulse Oximetry 97 11/02/21 10:47 Temperature 36.8 C 11/02/21 10:47 Pulse 80 11/02/21 10:47 Respiratory Rate 16 11/02/21 10:47 Respiratory Effort 11/02/21 10:51 Blood Pressure 123/80 11/02/21 10:47 Blood Pressure Position Sitting 11/02/21 10:47 Pulse Oximetry 97 11/02/21 10:47 Oxygen Delivery Method Room Air 11/02/21 10:47 Oxygen Flow Rate 0 11/02/21 10:47 Procedures <Veronique Costa NP - Last Filed: 11/02/21 16:18> Laceration Laceration 1: Site: hand Side (If applicable): left Size (cm): 1 Description: flap, irregular and contaminated Depth: simple, single layer Local Anesthetic: Lidocaine 1% and Bupivicaine 0.5% Amount of anesthesia used (mL): 4 Pre-repair: wound explored, irrigated extensively, deep structures intact and extensive debridement (Super Glue previously and pt attempted to sew lac) Skin layer closed with: nylon (Prolene) Size (cm): 5-0 Number of sutures: 6 Technique: simple, interrupted
[2021-11-02] MEDS: Cephalexin 500 MG CAP PO (11:14)
[2021-11-02] MEDS: Cephalexin 500 MG CAP, 2 CAPS/BTL PO (11:18)
[2021-11-02 11:52] VITALS: BP 136/82; PULSE 72; RESP 18; TEMP 37; O2SAT 98
== END 2021-11-02 12:35 | disposition home or self-care (01) ==
PROVIDERS: Emergency Provider Registered Nurse Emergency; PCP Nurse Practitioner
DX: S61.012A Laceration without foreign body of left thumb without damage to nail, initial encounter (principal); W26.0XXA Contact with knife, initial encounter
CPT/HCPCS: 12001; 90471

== ENCOUNTER 2022-05-19 08:24 | Observation (INO) | payer MEDICAID, SELFPAY ==
[2022-05-19] VITALS (42 sets, daily range): BP systolic 118–151; BP diastolic 75–97; PULSE 63–85; RESP 12–20; TEMP 36.6–37; O2SAT 94–99
--- NOTE | 2022-05-19 | DI.US_ITS ---
APPROVED REPORT EXAM: Comprehensive 2D, Doppler, and color-flow Echocardiogram Patient Location: In-Patient Room/Bed: [facility] Program Manager: Rosemary Chen RDCS (AE) Indications: Syncope, CAD, HTn, h/op smoking, CABG Other Information Study Quality: Adequate Conclusion Normal left ventricular wall thickness and chamber size. Estimated ejection fraction is 55%. There are no segmental wall motion abnormalities Normal right ventricular size and systolic function Both atria are normal in size There are no structural valvular abnormalities Mild mitral regurgitation Estimated right ventricular systolic pressure is 26 mmHg Wall motion Left Ventricle The left ventricle is normal size. The left ventricular systolic function is normal. The left ventric ular ejection fraction is within the normal range. There is normal left ventricular wall thickness. T here is normal LV segmental wall motion. There is no ventricular septal defect visualized. LVEF is 55 %. Right Ventricle The right ventricle is normal size. The right ventricular systolic function is normal. The RVSP is 26 .2 mmHg. Atria The left atrium size is normal. The right atrium size is normal. The interatrial septum is intact wit h no evidence for an atrial septal defect. Aortic Valve The aortic valve is normal in structure. Aortic valve is trileaflet. There is no aortic valvular sten osis. No aortic regurgitation is present. Mitral Valve The mitral valve is normal in structure. No evidence of mitral valve stenosis. Mild mitral regurgitat ion. Tricuspid Valve The tricuspid valve is normal in structure. There is no tricuspid valve stenosis. Trace tricuspid reg urgitation. Pulmonic Valve The pulmonary valve is normal in structure. There is no pulmonic valvular stenosis. Trace pulmonic re gurgitation. Great Vessels The aortic root is normal in size. Ascending aorta is not well visualized. Ascending aorta is not wel l visualized. IVC is normal in size and collapses >50% with inspiration. Pericardium There is no pericardial effusion. 2D Dimensions IVSD d PLAX 0.96 cm M: 0.6-1.2 LV Vol A2C d MOD 84.2 mL LVPW d PLAX 0.90 cm M: 0.6 - 1.2 LV Vol A4C d MOD 110.9 mL LVID d PLAX 5.12 cm M: 4.2 - 5.8 LA vol/ BSA A2C s A-L 24.5 mL/m2 LVDs 3.70 cm M: 2.5 - 4.0 LA vol/ BSA A4C s A-L 34.4 mL/m2 Ao Root d 3.03 cm M: 3.1 - 3.7 LA Vol/ BSA Biplane s A-L 30.3 mL/m2 RA Area A4C 18.74 cm2 LA Area A4C s MOD 21.81 cm2 RA Vol/ BSA A4C s A-L 27.8 mL/m2 LA Area A2C s MOD 17.62 cm2 LV EF Teichholz 52.2 % LV EF A4C MOD 50.4 % LVEF (Junior's) 52.64 % M: 52 - 72 LV EF A2C MOD 54.8 % LV Volume 75.01 mL M: 62 - 150 LV EF Biplane MOD 52.6 % LV Volume Index 39.27 mL/m2 M: 34 - 74 SV 51.85 mL LV Vol Biplane MOD 98.5 mL SV Index 27.11 mL/m2 FS 26.85 % M-Mode TAPSE 1.47 cm (M/F) >1.7 LV Diastology MV E' medial 0.105 (>0.07 m/s) E/A Ratio 1.0 LV E/e MED 10.00 (<14) MV E Vmax 1.05 (0.4-1.3 m/s) MV E' lateral 0.084 (>0.1 m/s) MV A Vmax 1.00 (0.4-1.3 m/s) LV E/e LAT 12.45 (<14) MV E/A Ratio 1.01 MV E/E' medial 10.03 MV E/E' lateral 12.50 Aortic Valve LVOT Area 3.73 cm2 AoV Area Vmax 2.60 cm2 LVOT Vmax 1.29 m/s AoV Area/ BSA (Vmax) 1.36 cm2/m2 LVOT Mean Joe. 0.83 m/s [place] Mean Joe. 2.40 cm2 LVOT Peak Grad 6.7 mmHg [place] Mean Joe. Index 1.26 cm2/m2 LVOT Mean Grad 3.3 mmHg LVOT VTI 0.262 m LVOT Diam s 2.15 cm AoV Vmax 1.85 m/s Velocity Ratio 0.70 AoV Mean Joe. 1.29 m/s AoV Peak Grad 13.7 mmHg LVOT SV 97.55 mL AoV Mean Grad 7.4 mmHg AoV VTI 0.344 m AoV Area VTI 2.84 cm2 AoV Area/ BSA (VTI) 1.48 cm/m2 Mitral Valve MV DT 157 (160-240 msec) MV PHT 46 msec MV Area PHT 4.82 cm2 MV VTI 0.395 m MV Area VTI 2.47 (4.0-6.0 cm2) Pulmonary Valve PV Vmax 1.08 (0.5-1.5 m/s) RVOT Peak Gr. 2.07 mmHg PV Peak Grad 4.7 mmHg RVOT Mean Gr. 1.00 mmHg PV Mean Grad 2.3 mmHg RVOT VTI 0.138 m PV VTI 0.207 m RVOT Vmax 0.72 m/s Tricuspid Valve TR Peak Grad 23.1 mmHg TR Vmax 2.41 m/s RA Pressure 3.00 mmHg RVSP (TR) 26.2 mmHg
--- NOTE | 2022-05-19 08:15 | RT.EKG_ITS ---
APPROVED REPORT Exam: Resting ECG Reason for Exam: syncopal episode Patient Location: E HR:67 bpm ECG Measurements Heart Rate 67 AXIS TX 164 P 52 QRSd 97 QRS 61 QT 365 T -39 QTc 386 Conclusion Sinus rhythm Probable left atrial enlargement. Inferior infarct, age indeterminate...Q>35mS, T neg, II III aVF Intraventricular conduction delay
--- NOTE | 2022-05-19 08:45 | DI.CT_ITS ---
Exam(s) CT HEAD WO EXAM: CT HEAD WO CLINICAL HISTORY: Syncope. TECHNIQUE: Imaging Protocol: Axial computed tomography images with coronal and sagittal reformatted images were created and reviewed COMPARISON: No exams were available for comparison FINDINGS: There are no skull fractures. Some mucosal thickening is noted in the left maxillary sinus. No assoc iated fluid level. There is also fluid in ethmoidal air cells on the left side. Sphenoid sinuses ar e clear. Frontal sinuses are not developed. There is some fluid in right-sided mastoid air cells no bigg. Left mastoid air cells are clear. There is no evidence of intracranial hemorrhage, mass effect, or shift of midline structures. There are no extra-axial fluid collections. The ventricles are not enlarged or shifted and there is no blo od within the ventricular system nor within the basal cisterns. IMPRESSION: No acute intracranial findings on this noninfused CT scan of the brain. Sinus findings as above. Also fluid noted in the right mastoid air cells. RADIATION DOSE DELIVERED: 789.85mGy.cm Total DLP DATA REPOSITORY: All CT scans at this facility are submitted to the National Radiology Data Registry (NRDR) Dose Index Registry (DIR) with the [employer] (ACR). RADIATION OPTIMIZATION: All CT scans at this facility use at least one of these dose optimization te chniques: automated exposure control; mA and/or kV adjustment per patient size (includes targeted exa ms where dose is matched to clinical indication); or iterative reconstruction.
--- NOTE | 2022-05-19 08:56 | ED.GENADUL_ITS ---
Discharge Plan Disposition Patient Disposition: Admit to [facility] Condition: Improving Discharge Details Clinical Impression: Syncope Admit Date/Time: 05/19/22 11:04 Admit Provider: Oleksandr Miranda Attending Provider: Oleksandr Miranda Primary Care Provider: Unknown,Unknown ED Provider: Riley Juarez Discharge Data Discharge Date/Time-TO BE ENTERED AT DEPARTURE: 05/19/22 12:07 Medical Decision Making This is a 61-year-old male with a history of coronary artery disease, status post initial stenting and then CABG in 2016. He reports an episode of syncope in which he bent over at a tractor supply store and then only remembers waking up. He was seen at [facility] and discharged. He states he has had 1 or 2 further episodes of feeling lightheaded while at rest over the intervening weeks. This morning after eating a normal breakfast with coffee he was sitting in his chair and had an episode of syncope associated with diaphoresis. He is amnestic to the onset of the event, remembers being woken up by his . He did not have tongue biting, shaking movements, or incontinence. He states that he has otherwise been well without recent illness. On arrival the patient is well-appearing, alert and interactive. His pulse will rise approximately 20 points with rising from a seated position. Differential diagnosis includes dehydration, acute coronary syndrome, cardiac arrhythmia. Patient IV access established, screening labs obtained he is referred for CT scan of the head, chest x-ray. He is given 1 L of normal saline. Patient's laboratories are reassuring. CT scan of his head unremarkable, chest x-ray within normal limits. Troponin is negative. Given the recurrent episodes of syncope I do feel the patient merits admission for further work-up. Case discussed with Dr. Leo Lezama and patient to be admitted HPI General Mode of arrival: EMS . Date/Time Provider Initiated Documentation: 05/19/22 08:33 . Limitations to Documentation: no limitations . Information obtained by: patient and EMS . History of Present Illness 61 year old M presents to the emergency department with the chief complaint of Syncope, described as moderate, and is localized to the head. Patient reports no radiation. Patient started experiencing this minute(s) and it has been intermittent and now resolved. No relieving factors improve symptom(s), No exacerbating factors reported . Patient notes syncope, weakness and other (Diaphoretic); denies chest pain and shortness of breath. Patient did receive the following treatments prior to arrival, none Related Data Home Medications Medication Instructions Recorded Confirmed aspirin 81 mg chewable tablet 1 tab PO DAILY 07/20/12 05/19/22 (Aspirin Low-Strength) atorvastatin 80 mg tablet 80 mg PO DAILY #90 tab-caps 03/10/21 05/19/22 omeprazole 40 mg capsule,delayed 40 mg PO DAILY #90 caps 04/29/21 05/19/22 release Previous Rx's Medication Instructions Recorded atorvastatin 80 mg tablet 80 mg PO DAILY #90 tab-caps 03/10/21 omeprazole 40 mg capsule,delayed 40 mg PO DAILY #90 caps 04/29/21 release Allergies Allergy/AdvReac Type Severity Reaction Status Date / Time lactose Allergy Verified 05/19/22 08:30 sertraline HCl [From Zoloft] AdvReac Severe vomitting Verified 05/19/22 08:30 hydrochlorothiazide AdvReac dizziness Verified 05/19/22 08:30 lisinopril AdvReac cough Verified 05/19/22 08:30 prednisolone AdvReac bloating Verified 05/19/22 08:30 simvastatin AdvReac increaseds Verified 05/19/22 08:30 CK General Stated Complaint: [id number] NAILA: 3 Review of Systems Narrative: 8 systems reviewed and otherwise negative PFSH All Active Problems (Updated 05/19/22 @ 10:53 by Riley Juarez MD) Syncope (Chronic) Tinnitus, bilateral (Acute) COVID-19 (Acute) 2020-associated with loss of taste and smell BRET (obstructive sleep apnea) (Chronic) Sensorineural hearing loss (SNHL) of both ears (Acute) Lactose intolerance (Acute) Spondylolisthesis (Acute) Dysphagia (Acute) Endoscopy at [place] Low back pain (Acute) althetic pubalgia, on my back-pain clinic at [facility]-status post multiple ablations which have been helpful, little benefit with physical therapy in the past Migraine with aura (Acute) Hyperlipidemia (Chronic 07/20/12) History of tobacco use (Acute) Gastroesophageal reflux disease (Chronic) Essential hypertension (Chronic 04/10/13) Colonoscopy refused (Acute 01/02/15) Atherosclerosis of [place] coronary artery (Chronic) stent x 2 2006 IMI 04/01. RCA dissection during cath procedure 2 vessel CABG 11/17/16. LV wall hypokinesis EF 50-55% Medical History Dysphagia Heart attack 2006 Surgical History Rotator Cuff Repair 2008;JULIAN S/P CABG (coronary artery bypass graft) Stent placement 2006; [facility];X2 Family History Mother , 72 Essential hypertension Hyperlipidemia Stroke Brain aneurysm Father , 88 Essential hypertension Heart disease Sister Essential hypertension Hyperlipidemia Brother Essential hypertension Hyperlipidemia Grandfather Stroke Daughter No problems noted. Social History Smoking/Tobacco Use Status: Former Tobacco Use tobacco type: cigarettes Quit Date: 05/17/94 Tobacco: How many years used: 26 Second Hand Exposure: Yes Smoking risk assessment performed?: Yes Alcohol Intake: former Drug use: Occasionally Substance use type: marijuana Household members: spouse Housing: house Number of Children: 1 Communication Needs: Hard of Hearing and Corrective Lenses Do you need help understanding health information?: Always Pets and animals: Yes Pets and animals: cat(s) and dog(s) Sexually active: Yes Do you think of yourself as: straight/heterosexual Current gender identity: male What is your relationship status?: How often do you talk on the phone with friends or family?: once per week How often do you get together with friends or relatives?: once per week Do you belong to any clubs or organized social groups?: no Panel score (0-1 are the most socially isolated patients): 1 Duration: < 15 minutes/day Elinor/Pentecostal: None Special elinor needs: No Seatbelt use: never Helmet use: Yes Helmet use: sometimes Drive intox or ride w/intox drivers license examiner: No Do you feel safe at home: Yes Do you feel safe in your relationship?: Yes Exam Narrative Exam Narrative: GEN: awake, alert, oriented 3. Pleasant, well groomed, interactive. HEAD: Normocephalic, atraumatic ENT: Mucous membranes moist, oropharynx unremarkable, External ear exam unremarkable EYES: PERRL, EOMI NECK: Full ROM, no MAGALI, no menigismus CHEST/RESP: Nontender, clear to auscultation bilateral, no wheeze/rhonchi/rales CARDIOVASCULAR: RRR, no murmur, rub anita. 2+ Rad pulse bilateral ABDOMEN: Soft, nontender, no mass. +Bowel sounds EXT: Full ROM, no edema, no rash Neuro: Grossly normal neurologic exam, conversant, interactive. Psych: Speech fluent, thoughts congruent, affect normal Course Vital Signs Vital signs: Vital Signs Temperature 36.7 C 05/19/22 08:25 Pulse 72 05/19/22 08:25 Respiratory Rate 18 05/19/22 08:25 Blood Pressure 118/75 05/19/22 08:25 Pulse Oximetry 98 05/19/22 08:25 Temperature 36.7 C 05/19/22 08:25 Temperature Source Temporal Artery Scan 05/19/22 08:25 Pulse 72 05/19/22 08:25 Respiratory Rate 18 05/19/22 08:25 Blood Pressure 118/75 05/19/22 08:25 Blood Pressure Position Sitting 05/19/22 08:25 Pulse Oximetry 98 05/19/22 08:25
[2022-05-19 09:06] LABS: Abs Immature Grans 0.02 10^3/uL (0.0-0.06); Absolute Basophil Count 0.04 10^3/uL (0.0-0.2); Absolute Eosinophil Count 0.31 10^3/uL (0.0-0.7); Absolute Lymphocyte Count 2.05 10^3/uL (1.2-3.4); Absolute Neutrophil Count 2.86 10^3/uL (1.2-6.7); Basophils % 0.7; Eosinophils % 5.4; HCT 42.2 % (40.0-50.0); HGB 14.4 g/dL (13.5-17.5); Immature Grans % 0.3; Lymphocytes % 35.5; MCH 32.8 pg (27.0-33.0); MCHC 34.1 % (32.0-36.0); MCV 96 fL (80-95); Monocytes % 8.7; Neutrophils % 49.4; Platelet Count 162 10^3/uL (130-400); RBC 4.39 10^6/uL (4.36-5.78); RDW 11.9 % (11.8-14.1); RDW-SD 42.5 fL; WBC 5.78 10^3/uL (4.4-10.8)
[2022-05-19 09:24] LABS: Bilirubin Negative (Negative); Blood Trace-intact (Negative); Clarity Clear (Clear); Glucose Negative (Negative); Ketones Negative (Negative); Leukocyte Esterase Negative (Negative); Nitrite Negative (Negative); Specific Gravity >= 1.030 (1.005-1.025); Urobilinogen 0.2 EU/dL (Up TO 0.2)
[2022-05-19 09:29] LABS: ALT 27 U/L (16-63); AST 21 U/L (15-37); Albumin 3.8 g/dL (3.4-5.0); Alkaline Phosphatase 76 U/L (46-116); Anion Gap 6.8 mmol/L (3-11); BUN 15 mg/dL (7-18); Bilirubin, Total 0.3 mg/dL (0.2-1.0); CO2 25.2 mmol/L (21.0-32.0); CREATININE 0.9 mg/dL (0.70-1.30); Calcium 8.7 mg/dL (8.5-10.1); Chloride 108 mmol/L (98-107); Estimated GFR 96.57 (mL/min/1.73m2); Glucose 133 mg/dL (74-106); Sodium 140 mmol/L (136-145); Troponin I < 50 ng/L (<or=60)
[2022-05-19 09:31] LABS: Bacteria Negative HPF (Negative); C & S Indicated? No; Casts Negative LPF (Negative); Crystals Negative HPF (Negative); Epithelial Cells Rare HPF (Negative); Mucus Negative (Negative); RBC 0-2 HPF (0-2); WBC Negative HPF (0-5)
[2022-05-19] MEDS: Normal Saline 1,000 ML 1000 ML IV (10:26)
--- NOTE | 2022-05-19 10:45 | DI.RAD_ITS ---
Exam(s) XR PORTABLE CHEST AP EXAM: XR PORTABLE CHEST AP CLINICAL HISTORY: Syncope. TECHNIQUE: 2D digital imaging was performed. COMPARISON: CR XR CHEST 2V PA LATERAL from 04/26/2018 FINDINGS: Single AP portable view. Sternotomy wires again noted. Heart size is upper normal. The mediastinum is not widened. Lungs are clear. No infiltrates nor obvious pleural effusions. IMPRESSION: No acute pulmonary findings on this single AP portable view of the chest. Previous sternotomy. Normal heart size. No pulmonary edema. DATA REPOSITORY: RADIATION DOSE DELIVERED:
[2022-05-19 11:02] LABS: Source Nasal/Nares
[2022-05-19 11:32] LABS: COVID-19 PCR Negative (Negative)
[2022-05-19 11:41] LABS: Lab Add On Test DONE
[2022-05-19 12:10] LABS: TSH 1.99 uIU/mL (0.36-3.74)
[2022-05-19 13:08] LABS: Troponin I < 50 ng/L (<or=60)
--- NOTE | 2022-05-19 15:30 | W.PM.HP.N ---
Date of service: 05/19/22 Time of Service: 15:30 Assessment and Plan Assessment and plan (1) Syncope: Status: Chronic Assessment and plan: Observation admission for telemetry monitoring. No known arrhythmias in past. Not orthostatic or volume depleted. Will need a groundwater monitoring technician as outpt when discharged. TSH 1.99. (2) BRET (obstructive sleep apnea): Status: Chronic Assessment and plan: is bringin in his CPAP machine. (3) Hyperlipidemia: Status: Chronic Assessment and plan: Cont statin. Qualifiers: Hyperlipidemia type: mixed hyperlipidemia Qualified Code(s): E78.2 - Mixed hyperlipidemia (4) Essential hypertension: Status: Chronic Assessment and plan: HIstory of HTN but normotensive currently and not on antihypertensive meds. Monitor. (5) Atherosclerosis of [place] coronary artery: Status: Chronic Assessment and plan: H/O stents, then CABG. Not on a BB. Cont ASA and statin. Troponin neg x 2. No CP. Qualifiers: [place] vs. transplanted heart: [place] heart Associated angina: without angina Qualified Code(s): I25.10 - Atherosclerotic heart disease of [place] coronary artery without angina pectoris History of Present Illness History of Present Illness Chief Complaint: Syncope Narrative: This is a 61 yo male with a PMH of CAD with stents and CABG, HLD, HTN, GERD, previous tobacco use. He presneted to the ED after his found him sitting sitting at the kitchen table with his head on the table. He was aroused/woken by his who noted him to be diaphoretic. He had no memory of the time preceding the event. Several weeks prior he was at [employer] in [place] when he bent over and passed out. He only recalls coming to He was taken to [facility] and discharged. He endorsed 1-2 episodes since that time where he felt lightheaded. He was sitting during those times. He doesn't recall any chest pain or palpitations. No other recent complaints other than a runny nose. No fever/chills, headache, vertigo. In the ED his vital signs were normal, including orthostatic BP readings. CBC unremarkable. Na, K and Mg normal. BUN and creatinine normal. Troponin negative x 2. CT head w/o acute findings. CXR w/o acute findings. Admitted for telemetry and echocardiogram. Review of Systems All systems reviewed & are unremarkable except as noted in HPI and below PFSH All Active Problems Syncope (Chronic) Tinnitus, bilateral (Acute) COVID-19 (Acute) 2020-associated with loss of taste and smell BRET (obstructive sleep apnea) (Chronic) Sensorineural hearing loss (SNHL) of both ears (Acute) Lactose intolerance (Acute) Spondylolisthesis (Acute) Dysphagia (Acute) Endoscopy at [place] Low back pain (Acute) althetic pubalgia, on my back-pain clinic at [facility]-status post multiple ablations which have been helpful, little benefit with physical therapy in the past Migraine with aura (Acute) Hyperlipidemia (Chronic 07/20/12) History of tobacco use (Acute) Gastroesophageal reflux disease (Chronic) Essential hypertension (Chronic 04/10/13) Colonoscopy refused (Acute 01/02/15) Atherosclerosis of [place] coronary artery (Chronic) stent x 2 2006 IMI 04/01. RCA dissection during cath procedure 2 vessel CABG 04/02/16. LV wall hypokinesis EF 50-55% Medical History Dysphagia Heart attack 2006 Surgical History Rotator Cuff Repair 2008;JULIAN S/P CABG (coronary artery bypass graft) Stent placement 2006; [facility];X2 Family History Mother , 72 Essential hypertension Hyperlipidemia Stroke Brain aneurysm Father , 88 Essential hypertension Heart disease Sister Essential hypertension Hyperlipidemia Brother Essential hypertension Hyperlipidemia Grandfather Stroke Daughter No problems noted. Social History Smoking/Tobacco Use Status: Former Tobacco Use tobacco type: cigarettes Quit Date: 05/17/94 Tobacco: How many years used: 26 Second Hand Exposure: Yes Smoking risk assessment performed?: Yes Alcohol Intake: former Drug use: Occasionally Substance use type: marijuana Household members: spouse Housing: house Number of Children: 1 Communication Needs: Hard of Hearing and Corrective Lenses Do you need help understanding health information?: Always Pets and animals: Yes Pets and animals: cat(s) and dog(s) Sexually active: Yes Do you think of yourself as: straight/heterosexual Current gender identity: male What is your relationship status?: How often do you talk on the phone with friends or family?: once per week How often do you get together with friends or relatives?: once per week Do you belong to any clubs or organized social groups?: no Panel score (0-1 are the most socially isolated patients): 1 Duration: < 15 minutes/day Elinor/Bahai: None Special elinor needs: No Seatbelt use: never Helmet use: Yes Helmet use: sometimes Drive intox or ride w/intox mechanic welder truck driver: No Do you feel safe at home: Yes Do you feel safe in your relationship?: Yes Meds Allergies and Home Medications Allergies Allergy/AdvReac Type Severity Reaction Status Date / Time lactose Allergy Verified 05/19/22 08:30 sertraline HCl [From Zoloft] AdvReac Severe vomitting Verified 05/19/22 08:30 hydrochlorothiazide AdvReac dizziness Verified 05/19/22 08:30 lisinopril AdvReac cough Verified 05/19/22 08:30 prednisolone AdvReac bloating Verified 05/19/22 08:30 simvastatin AdvReac increaseds Verified 05/19/22 08:30 CK Home Medications Medication Instructions Recorded Confirmed Type aspirin 81 mg chewable tablet 1 tab PO DAILY 07/20/12 05/19/22 History (Aspirin Low-Strength) atorvastatin 80 mg tablet 80 mg PO DAILY #90 tab-caps 03/10/21 05/19/22 Rx omeprazole 40 mg capsule,delayed 40 mg PO DAILY #90 caps 04/29/21 05/19/22 Rx release Exam Narrative Exam Narrative: Pleasant male lying in bed. Conversant Const General: cooperative and no acute distress Nutritional Appearance: overweight Orientation: alert and oriented x3 Eyes General: appearance normal, both eyes and all related structures Sclera: sclerae normal Resp Effort & Inspection: normal respiratory effort Auscultation: clear to auscultation bilaterally Cardio Rate: regular rate Rhythm: regular rhythm Heart Sounds: S1 normal, S2 normal and no murmurs GI Palpation: soft and nontender Skin General skin exam: no rashes or lesions noted Neuro General: patient alert and no focal motor deficits Cranial Nerves: facial strength normal Speech: speech normal Extrem General: no pedal edema and no calf tenderness Psych Appearance: grossly normal Mental Status: mental status grossly normal Mood: congruent mood Affect: normal affect Results Labs Result diagrams: 05/19/22 08:55 05/19/22 08:55 Labs: Laboratory Results - last 24 hr 05/19/22 05/19/22 05/19/22 08:55 08:55 08:55 WBC 5.78 RBC 4.39 Hgb 14.4 Hct 42.2 MCV 96 H MCH 32.8 MCHC 34.1 RDW 11.9 Plt Count 162 MPV 9.0 Immature Gran % 0.3 Neutrophils % 49.4 Lymphocytes % 35.5 Monocytes % 8.7 Eosinophils % 5.4 Basophils % 0.7 Nucleated RBC % 0.0 Absolute Neutrophils 2.86 Absolute Lymphocytes 2.05 Absolute Monocytes 0.50 Absolute Eosinophils 0.31 Absolute Basophils 0.04 Sodium 140 Potassium 4.0 Chloride 108 H Carbon Dioxide 25.2 Anion Gap 6.8 BUN 15 Creatinine 0.9 Est GFR (CKD-EPI 2020) 96.57 Glucose 133 H Calcium 8.7 Magnesium 2.0 Total Bilirubin 0.3 AST 21 ALT 27 Alkaline Phosphatase 76 Troponin I < 50 Total Protein 7.0 Albumin 3.8 TSH Urine Color Urine Clarity Urine pH Ur Specific [place] Urine Protein Urine Ketones Urine Blood Urine Nitrite Urine Bilirubin Urine Urobilinogen Ur Leukocyte Esterase Urine RBC Urine WBC Ur Epithelial Cells Urine Crystals Urine Bacteria Urine Casts Urine Mucus Ur Culture Indicated? Urine Glucose COVID-19 Source SARS-CoV-2 (PCR) Add-On Test Request DONE 05/19/22 05/19/22 05/19/22 08:55 09:10 10:47 WBC RBC Hgb Hct MCV MCH MCHC RDW Plt Count MPV Immature Gran % Neutrophils % Lymphocytes % Monocytes % Eosinophils % Basophils % Nucleated RBC % Absolute Neutrophils Absolute Lymphocytes Absolute Monocytes Absolute Eosinophils Absolute Basophils Sodium Potassium Chloride Carbon Dioxide Anion Gap BUN Creatinine Est GFR (CKD-EPI 2020) Glucose Calcium Magnesium Total Bilirubin AST ALT Alkaline Phosphatase Troponin I Total Protein Albumin TSH 1.99 Urine Color Yellow Urine Clarity Clear Urine pH 6.0 Ur Specific [place] >= 1.030 H Urine Protein Negative Urine Ketones Negative Urine Blood Trace-intact H Urine Nitrite Negative Urine Bilirubin Negative Urine Urobilinogen 0.2 Ur Leukocyte Esterase Negative Urine RBC 0-2 Urine WBC Negative Ur Epithelial Cells Rare Urine Crystals Negative Urine Bacteria Negative Urine Casts Negative Urine Mucus Negative Ur Culture Indicated? No Urine Glucose Negative COVID-19 Source Cancelled SARS-CoV-2 (PCR) Cancelled Add-On Test Request 05/19/22 05/19/22 10:50 12:40 WBC RBC Hgb Hct MCV MCH MCHC RDW Plt Count MPV Immature Gran % Neutrophils % Lymphocytes % Monocytes % Eosinophils % Basophils % Nucleated RBC % Absolute Neutrophils Absolute Lymphocytes Absolute Monocytes Absolute Eosinophils Absolute Basophils Sodium Potassium Chloride Carbon Dioxide Anion Gap BUN Creatinine Est GFR (CKD-EPI 2020) Glucose Calcium Magnesium Total Bilirubin AST ALT Alkaline Phosphatase Troponin I < 50 Total Protein Albumin TSH Urine Color Urine Clarity Urine pH Ur Specific [place] Urine Protein Urine Ketones Urine Blood Urine Nitrite Urine Bilirubin Urine Urobilinogen Ur Leukocyte Esterase Urine RBC Urine WBC Ur Epithelial Cells Urine Crystals Urine Bacteria Urine Casts Urine Mucus Ur Culture Indicated? Urine Glucose COVID-19 Source Nasal/Nares SARS-CoV-2 (PCR) Negative Add-On Test Request Last Vital Signs Temp 36.6 C 05/19/22 12:24 Pulse 73 05/19/22 12:24 Resp 18 05/19/22 12:24 BP 136/87 05/19/22 12:24 Pulse Ox 99 05/19/22 12:24 Time Spent Time spent with Patient: <40 minutes Time was spent: preparing to see the patient(eg.review tests), obtaining and/or reviewing separately otained hiistory, ordering medications,tests, procedures, referring, communicating with other health managed care nurse, indepentently interpreting results and care coordination
[2022-05-19 15:50] LABS: Lab Add On Test DONE
[2022-05-19 16:23] LABS: Hemoglobin A1C 5.6 % (<5.7)
--- NOTE | 2022-05-19 16:37 | PHA.REVIEW2 ---
Pharmacy Admission Review - Admission Clinical Review lactose Allergy (Verified 05/19/22 08:30) sertraline HCl [From Zoloft] Adverse Reaction (Severe, Verified 05/19/22 08:30) vomitting hydrochlorothiazide Adverse Reaction (Verified 05/19/22 08:30) dizziness lisinopril Adverse Reaction (Verified 05/19/22 08:30) cough prednisolone Adverse Reaction (Verified 05/19/22 08:30) bloating simvastatin Adverse Reaction (Verified 05/19/22 08:30) increaseds CK Resuscitation Status Full Code Height 5 ft 6 in Weight 84.6 kg - Renal Dosing Renal Dosing: BUN 15 mg/dL (7-18) 05/19/22 08:55 Creatinine 0.9 mg/dL (0.70-1.30) 05/19/22 08:55 Medications needing adjustments: Reviewed (Crcl ~78.13 mL/min current meds okay) - Anticoagulation Anticoagulation: Hgb 14.4 g/dL (13.5-17.5) 05/19/22 08:55 Hct 42.2 % (40.0-50.0) 05/19/22 08:55 Plt Count 162 10^3/uL (130-400) 05/19/22 08:55 Creatinine 0.9 mg/dL (0.70-1.30) 05/19/22 08:55 DVT Prophylaxis: Reviewed (TEDs, SCDs, aspirin) Medications: Aspirin - Opiate Usage Evaluate Pain Scale/Pains Meds: N/A - Relevant Labs Sodium 140 mmol/L (136-145) 05/19/22 08:55 Potassium 4.0 mmol/L (3.5-5.1) 05/19/22 08:55 Chloride 108 mmol/L (98-107) H 05/19/22 08:55 Magnesium 2.0 mg/dL (1.8-2.4) 05/19/22 08:55 Electrolytes, C-Reactive P, ESR: Reviewed - DM Control DM Control: Glucose 133 mg/dL (74-106) H 05/19/22 08:55 Hemoglobin A1c 5.6 % (<5.7) 05/19/22 08:55 DM Control: Reviewed (no DM noted in pt's medical history, A1c 5.6) Insulin Dosing, Diabetic Medication: n/a - Cardiac Review Cardiac Review: Troponin I < 50 ng/L (<or=60) 05/19/22 12:40 BP, HR, EF%: Reviewed - Qtc Review QTc: Reviewed (QTc 386 on admission) - IV to PO Switch IV Medications: Reviewed - Home Meds Home Med List reviewed: Reviewed - Current meds Current Medication Order Review: Reviewed - Comments Comments/Follow Ups: Watch VS, labs and for med changes.
[2022-05-19] MEDS: Omeprazole 20 MG CAPCR 40 MG PO (17:26)
[2022-05-19 18:31] LABS: Troponin I < 50 ng/L (<or=60)
[2022-05-19] MEDS: Atorvastatin 40 MG TAB 80 MG PO (22:28)
[2022-05-20 00:03] VITALS: PULSE 95
[2022-05-20 03:31] VITALS: BP 153/96; PULSE 87; RESP 19; TEMP 36.7; O2SAT 97
[2022-05-20 07:21] VITALS: BP 148/93; PULSE 79; RESP 18; TEMP 36.5; O2SAT 97
[2022-05-20 07:30] VITALS: PULSE 75
[2022-05-20 07:45] LABS: ALT 29 U/L (16-63); AST 21 U/L (15-37); Alkaline Phosphatase 76 U/L (46-116); Anion Gap 7.1 mmol/L (3-11); BUN 16 mg/dL (7-18); Bilirubin, Total 0.6 mg/dL (0.2-1.0); CO2 27.9 mmol/L (21.0-32.0); CREATININE 1.1 mg/dL (0.70-1.30); Calcium 8.9 mg/dL (8.5-10.1); Chloride 104 mmol/L (98-107); Glucose 103 mg/dL (74-106); Potassium 3.9 mmol/L (3.5-5.1); Sodium 139 mmol/L (136-145); Total Protein 7.2 g/dL (6.4-8.2)
[2022-05-20] MEDS: Aspirin 81 MG CHEW PO (08:55)
--- NOTE | 2022-05-20 10:04 | DSE_ITS ---
Date of service: 05/20/22 Time of Service: 10:11 DS: Diagnosis Discharge Diagnosis (1) Syncope: Status: Chronic (2) BRET (obstructive sleep apnea): Status: Chronic (3) Hyperlipidemia: Status: Chronic (4) Essential hypertension: Status: Chronic (5) Atherosclerosis of [place] coronary artery: Status: Chronic Discharge Plan Disposition Patient Disposition: Home Condition: Stable Discharge Details Reason For Visit: Syncope Admit Date/Time: 05/19/22 11:04 Admit Provider: Oleksandr Miranda Attending Provider: Oleksandr Miranda Primary Care Provider: Unknown,Unknown Hospital Course Hospital Course: This is a 61 yo male with a PMH of CAD with stents and CABG, HLD, HTN, GERD, previous tobacco use.? He presneted to the ED after his found him sitting sitting at the kitchen table with his head on the table.? He was aroused/woken by his who noted him to be diaphoretic.? He had no memory of the time preceding the event.? Several weeks prior he was at [employer] in [place] when he bent over and passed out.? He only recalls coming to? He was taken to [facility] and discharged.? He endorsed 1-2 episodes since that time wh ere he felt lightheaded.? He was sitting during those times.? He doesn't recall any chest pain or palpitations.? No other recent complaints other than a runny nose. No fever/chills, headache, vertigo. In the ED his vital signs were normal, including orthostatic BP readings. CBC unremarkable.? Na, K and Mg normal.? BUN and creatinine normal. ? Troponin negative x 2. CT head w/o acute findings.? CXR w/o acute findings. Admitted for telemetry and echocardiogram that showed normal left ventricular wall thickness. There is normal LV segmental wall motion. There is no ventricular septal defect visualized. LVEF is 55%. Overnight telemetry was unremarkable. TSH normal. A1c 5.6. With further discussion the patient and his related that he has a h/o dysphagia, salivating when food and or liquids don't clear his esophagus along with becoming diaphoretic. Several of the episodes of syncope occurred during food consumption. He may be having an autonomic response to food not passing through his esophagus at some level. He did have an EGD in 2020 that showed no narrowing/stenosis but a dilation of the LES was performed. He had not symptoms for some period of time after this procedure, but it has more recently started to recur. He will be referred to [facility]. A speech consult for swallow evaluation placed and they will determine if an outpt swallow evaluation is warranted. A 1 month school lunch monitor placed before discharge. Instructions given on techniques to assist in avoiding dysphagia. PCP f/u in 1-2 weeks. Home Meds and New Rx's Prescriptions: Continued aspirin [Aspirin Low-Strength] 81 MG tablet,chewable 1 tab PO DAILY atorvastatin 80 mg tablet 80 mg PO DAILY Qty: 90 3RF omeprazole 40 mg capsule,delayed release(DR/EC) 40 mg PO DAILY Qty: 90 3RF Discharge Instructions Instructions: Syncope (DC) Additional Instructions: Chew foods thoroughly. Drink water after each 1-2 bites. Eat slowly. Stand Alone Forms: Nursing Discharge Form Referrals: GASTROENTEROLOGY,[facility] [OTHER] - (Dysphagia. 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 Discharge Orders Discharge Orders: Discharge Order (Routine); Ordered 05/20/22 Ordered By: Oleksandr Miranda Other Ambulatory Orders: Cardiac Event Recorder (Routine) Timeframe: 1 Month Facility: [facility] - Location: Respiratory Therapy Ordered By: Oleksandr Miranda Discharge Data Discharge Date/Time-TO BE ENTERED AT DEPARTURE: 05/20/22 12:30 DS: Summary Time Spent with Patient providing and/or coordinating discharge services: Greater than 30 minutes Status at Discharge Functional status at discharge: independent ambulation Overall status at discharge: patient is back to baseline Mental Status: mental status grossly normal Speech and Movement: speech clear Mood: congruent mood Affect: normal affect Exam Narrative Exam Narrative: Pleasant male lying in bed. Conversant Const General: cooperative and no acute distress Nutritional Appearance: overweight Orientation: alert and oriented x3 Eyes General: appearance normal, both eyes and all related structures Sclera: sclerae normal Resp Effort & Inspection: normal respiratory effort Auscultation: clear to auscultation bilaterally Cardio Rate: regular rate Rhythm: regular rhythm Heart Sounds: S1 normal, S2 normal and no murmurs GI Palpation: soft and nontender Skin General skin exam: no rashes or lesions noted Neuro General: patient alert and no focal motor deficits Cranial Nerves: facial strength normal Speech: speech normal Extrem General: no pedal edema and no calf tenderness Psych Appearance: grossly normal Mental Status: mental status grossly normal Speech and Movement: speech clear Mood: congruent mood Affect: normal affect DS: Data Vitals/I&O Vitals and I&O: Vital Signs Temperature 36.5 C 05/20/22 07:21 Temperature Source Tympanic 05/20/22 07:21 Pulse 75 05/20/22 07:30 Pulse Rhythm Regular 05/20/22 05:15 Pulse 78 05/19/22 11:50 Respiratory Rate 18 05/20/22 07:21 Respiratory Effort 05/20/22 05:15 Respiratory Depth Normal 05/20/22 05:15 Respiratory Pattern Normal 05/20/22 05:15 Blood Pressure 148/93 H 05/20/22 07:21 Blood Pressure Mean 96 05/19/22 11:46 Blood Pressure Position Sitting 05/19/22 08:25 Pulse Oximetry 97 05/20/22 07:21 Oxygen Delivery Method Room Air 05/20/22 07:21 Oxygen Flow Rate 0 05/20/22 07:21 Fraction of Inspired Oxygen (FIO2) 21 05/20/22 07:36 Pain Level 0 05/20/22 07:21 Intake & Output 05/19/22 05/19/22 05/20/22 11:59 23:59 11:59 Intake Total 1480 / 1480 Balance 1480 / 1480 Weight 81.647 kg 84.6 kg 81.9 kg Intake: IV 1000 / 1000 Oral 480 / 480 Other: Urine Appearance Clear Comment unable to assess. independent Voiding Methods Toilet Toilet Data Completed and Pending Labs on day of discharge: Labs from last 24 hours 05/20/22 05/19/22 05/19/22 06:30 18:06 12:40 Sodium 139 Potassium 3.9 Chloride 104 Carbon Dioxide 27.9 Anion Gap 7.1 BUN 16 Creatinine 1.1 Est GFR (CKD-EPI 2020) 75.90 Glucose 103 Hemoglobin A1c Calcium 8.9 Total Bilirubin 0.6 AST 21 ALT 29 Alkaline Phosphatase 76 Troponin I < 50 < 50 Total Protein 7.2 Albumin 4.0 TSH COVID-19 Source SARS-CoV-2 (PCR) Add-On Test Request 05/19/22 05/19/22 05/19/22 10:50 10:47 08:55 Sodium Potassium Chloride Carbon Dioxide Anion Gap BUN Creatinine Est GFR (CKD-EPI 2020) Glucose Hemoglobin A1c 5.6 Calcium Total Bilirubin AST ALT Alkaline Phosphatase Troponin I Total Protein Albumin TSH COVID-19 Source Nasal/Nares Cancelled SARS-CoV-2 (PCR) Negative Cancelled Add-On Test Request 05/19/22 05/19/22 05/19/22 08:55 08:55 08:55 Sodium Potassium Chloride Carbon Dioxide Anion Gap BUN Creatinine Est GFR (CKD-EPI 2020) Glucose Hemoglobin A1c Calcium Total Bilirubin AST ALT Alkaline Phosphatase Troponin I Total Protein Albumin TSH 1.99 COVID-19 Source SARS-CoV-2 (PCR) Add-On Test Request DONE DONE PFSH All Active Problems Syncope (Chronic) Tinnitus, bilateral (Acute) COVID-19 (Acute) 2020-associated with loss of taste and smell BRET (obstructive sleep apnea) (Chronic) Sensorineural hearing loss (SNHL) of both ears (Acute) Lactose intolerance (Acute) Spondylolisthesis (Acute) Dysphagia (Acute) Endoscopy at [place] Low back pain (Acute) althetic pubalgia, on my back-pain clinic at [facility]-status post multiple ablations which have been helpful, little benefit with physical therapy in the past Migraine with aura (Acute) Hyperlipidemia (Chronic 07/20/12) History of tobacco use (Acute) Gastroesophageal reflux disease (Chronic) Essential hypertension (Chronic 04/10/13) Colonoscopy refused (Acute 01/02/15) Atherosclerosis of [place] coronary artery (Chronic) stent x 2 2006 IMI 04/01. RCA dissection during cath procedure 2 vessel CABG 04/02/16. LV wall hypokinesis EF 50-55% Medical History Dysphagia Heart attack 2006 Surgical History Rotator Cuff Repair 2008;JULIAN S/P CABG (coronary artery bypass graft) Stent placement 2006; [facility];X2 Family History Mother , 72 Essential hypertension Hyperlipidemia Stroke Brain aneurysm Father , 88 Essential hypertension Heart disease Sister Essential hypertension Hyperlipidemia Brother Essential hypertension Hyperlipidemia Grandfather Stroke Daughter No problems noted. Social History Smoking/Tobacco Use Status: Former Tobacco Use tobacco type: cigarettes Quit Date: 05/17/94 Tobacco: How many years used: 26 Second Hand Exposure: Yes Smoking risk assessment performed?: Yes Alcohol Intake: former Drug use: Occasionally Substance use type: marijuana Household members: spouse Housing: house Number of Children: 1 Communication Needs: Hard of Hearing and Corrective Lenses Do you need help understanding health information?: Always Pets and animals: Yes Pets and animals: cat(s) and dog(s) Sexually active: Yes Do you think of yourself as: straight/heterosexual Current gender identity: male What is your relationship status?: How often do you talk on the phone with friends or family?: once per week How often do you get together with friends or relatives?: once per week Do you belong to any clubs or organized social groups?: no Panel score (0-1 are the most socially isolated patients): 1 Duration: < 15 minutes/day Elinor/Episcopal: None Special elinor needs: No Seatbelt use: never Helmet use: Yes Helmet use: sometimes Drive intox or ride w/intox local flatbed driver: No Do you feel safe at home: Yes Do you feel safe in your relationship?: Yes Time Spent with Patient Time Spent with Patient: <45 minutes Time was spent: ordering medications,tests, procedures, indepentently interpreting results, counseling the patient and care coordination
[2022-05-20 10:55] VITALS: BP 131/84; PULSE 72; RESP 18; TEMP 36.6; O2SAT 96
--- NOTE | 2022-05-20 12:36 | PDOC.STREC ---
Date of service: 05/20/22 Time of Service: 11:45 Speech Therapy Recommendations Report ST Recommendations: Consult received from Dr Miranda given reported esophageal dysphagia to rule out oral-pharyngeal component and provide education. Chart reviewed. Patient was contacted in his hospital room, right as he was preparing his things for discharge. Therefere, no examination was completed, but patient was willing to participate in interview and education. HPI: This is a 61 yo male with a PMH of CAD with stents and CABG, HLD, HTN, GERD, previous tobacco use.? He presneted to the ED after his found him sitting sitting at the kitchen table with his head on the table.? He was aroused/woken by his who noted him to be diaphoretic.? He had no memory of the time preceding the event.? Several weeks prior he was at [employer] in [place] when he bent over and passed out.? He only recalls coming to? He was taken to [facility] and discharged.? He endorsed 1-2 episodes since that time where he felt lightheaded.? He was sitting during those times.? He doesn't recall any chest pain or palpitations.? No other recent complaints other than a runny nose. No fever/chills, headache, vertigo. In the ED his vital signs were normal, including orthostatic BP readings. CBC unremarkable.? Na, K and Mg normal.? BUN and creatinine normal. ? Troponin negative x 2. CT head w/o acute findings.? CXR w/o acute findings. Admitted for telemetry and echocardiogram. Patient report: Patient denies symptoms such as globus sensation, sensation of pharyngeal stasis, frequent reflexive coughing, voice changes. He does endorse history of reflux, he has been taking omeprazole for 10+ years. He reports undergoing esophageal dilation in the past which did not improve his symptoms. He describes sensation of food getting stuck in distal esophagus and not going into his stomach. He notes this can happen with both large or small quantities of food, as well as across consistencies. (Gives the example of I could eat a pat of butter and that could cause it.) This often triggers discomfort, sweating and overheating, excessive drooling, and sometimes causes syncope. He has also had episodes of syncope unrelated to esophageal dysphagia. He feels episodes are happening more and more frequently lately. He also reports increased hiccups recently. Patient education given: S/sx to watch for aspiration, including aspiration of nighttime reflux Relationship between aspiration and deglutition S/sx GERD and relationship between GERD and swallow function Risk management strategies such as increased diligence and frequency of oral care. Instructional handout provided. Reflux management strategies such as timing, size, and contents of meals, positional factors for sleep and for eating. Handout provided. [employer] role in swallowing assessment and management including instrumental evaluation. Indicators to watch for to warrant [employer] evaluation or instrumental evaluation in the future (e.g., oral-pharyngeal symptoms). Plan: No further [employer] services at this time. Agree with GI consult [facility] [place] [place] for further testing/management. Refer to [employer] in the future if patient develops symptoms suspicious for oral-pharyngeal impairment. Coding
== END 2022-05-20 12:30 | disposition home or self-care (01) ==
LOC: ER 10:53 → MS 12:01
PROVIDERS: Admitting Provider Family Medicine; Emergency Provider Emergency Medicine; Visit Provider Family Medicine
DX: R55 Syncope and collapse (principal); R13.10 Dysphagia, unspecified; G47.33 Obstructive sleep apnea (adult) (pediatric); E78.2 Mixed hyperlipidemia; I10 Essential (primary) hypertension; I25.10 Atherosclerotic heart disease of native coronary artery without angina pectoris; Z95.5 Presence of coronary angioplasty implant and graft; Z95.1 Presence of aortocoronary bypass graft; K21.9 Gastro-esophageal reflux disease without esophagitis; Z87.891 Personal history of nicotine dependence; H90.3 Sensorineural hearing loss, bilateral; Z86.16 Personal history of COVID-19; G43.109 Migraine with aura, not intractable, without status migrainosus; M43.10 Spondylolisthesis, site unspecified; M54.50 Low back pain, unspecified; E73.9 Lactose intolerance, unspecified; I25.2 Old myocardial infarction; Z20.822 Contact with and (suspected) exposure to COVID-19
CPT/HCPCS: 36415; 80053; 87635; 93005; 93270; 96360; 96361; 99285; 70450; 71045; 81003; 81015; 83036; 83735; 84443; 84484; 85025; 93010; 93306; 99222; 99239; G0378

== ENCOUNTER 2022-05-21 02:24 | Outpatient (CLI) | payer MEDICAID, SELFPAY ==
[2022-05-21 08:00] LABS: Calculated LDL 99 mg/dL (<100); Cholesterol 184 mg/dL (<200); HDL Cholesterol 53 mg/dL (40-60); Triglyceride 162 mg/dL (<150)
== END 2022-05-21 02:25 | disposition home or self-care (01) ==
LOC: LBO 02:24
PROVIDERS: Visit Provider Student in an Organized Health Care Education/Training Program
DX: Z98.890 Other specified postprocedural states (principal); Z95.1 Presence of aortocoronary bypass graft
CPT/HCPCS: 36415; 80061

== ENCOUNTER 2022-06-22 07:18 | Outpatient (CLI) | payer MEDICAID, SELFPAY ==
--- NOTE | 2022-06-22 08:40 | W.CARDEVENT ---
Date of service: 06/22/22 Time of Service: 08:40 Cardiac Event Recorder Referring Provider:: Jil Torres Indications:: Syncope Cardiac Event Note: This is a 30-day cardiac event recorder ordered for syncope Rhythm throughout was sinus with an average heart rate of 87. Maximum was 163. There was no bradycardia There was no atrial fibrillation, no high-grade AV block, no pauses greater than 3 seconds Sinus tachycardia was frequent, unclear of relation to activity No patient's symptoms were reported
== END 2022-06-22 07:19 | disposition home or self-care (01) ==
LOC: CARDOPNVT 07:18
PROVIDERS: Visit Provider Internal Medicine Cardiovascular Disease
DX: R55 Syncope and collapse (principal); R00.0 Tachycardia, unspecified

== ENCOUNTER → 2023-11-26 00:14 | Outpatient (CLI) | payer MEDICAID, SELFPAY ==
--- NOTE | 2023-11-26 | DI.US_ITS ---
APPROVED REPORT EXAM: Comprehensive 2D, Doppler, and color-flow Echocardiogram Patient Location: Out-Patient Clinical Director: Rosemary Chen RDCS (AE) Indications: Lt heart failure, Ejection fraction Conclusion Normal left ventricular wall thickness and chamber size. Ejection fraction is 55%. Small wall motio n abnormality as noted below Normal right ventricular size and function Both atria are normal in size Aortic valve is trileaflet and mildly sclerotic without stenosis or regurgitation Normal mitral valve with mild regurgitation Estimated right ventricular systolic pressure is 22 mmHg Ascending aorta measures 3.63 centimeters Wall motion Left Ventricle The left ventricle is normal size. The overall left ventricular systolic function appears normal. The re is normal left ventricular wall thickness. Regional wall motion abnormalities are noted. There is no ventricular septal defect visualized. LVEF is 55%. Right Ventricle Right ventricle is grossly normal in size. Right ventricular systolic function is grossly normal. Atria The left atrium size is normal. The right atrium size is normal. The interatrial septum is intact wit h no evidence for an atrial septal defect. Aortic Valve The Aortic valve is mildly sclerotic. Aortic valve is trileaflet. There is no aortic valvular stenosi s. No aortic regurgitation is present. Mitral Valve The mitral valve is normal in structure. No evidence of mitral valve stenosis. Mild mitral regurgitat ion. Tricuspid Valve The tricuspid valve is normal in structure. There is no tricuspid valve stenosis. Trace tricuspid reg urgitation. The RVSP is 22.1 mmHg. Pulmonic Valve The pulmonary valve is normal in structure. There is no pulmonic valvular stenosis. Mild pulmonic reg urgitation. Great Vessels The aortic root is normal in size. The ascending aorta is mildly dilated. Aortic arch is not well vis ualized. IVC is normal in size and collapses >50% with inspiration. Pericardium There is no pericardial effusion. 2D Dimensions IVSD d PLAX 0.80 cm M: 0.6-1.2 Ao Root d 3.04 cm M: 3.1 - 3.7 LVPW d PLAX 0.82 cm M: 0.6 - 1.2 Ao Asc Diam d 3.63 cm M: 2.6 - 3.4 LVID d PLAX 5.12 cm M: 4.2 - 5.8 LVDs 3.70 cm M: 2.5 - 4.0 LV EF Teichholz 53.5 % FS 27.76 % LV EDV (Teich) 124.9 mL LV ESV (Teich) 58.1 mL M-Mode TAPSE 1.50 cm (M/F) >1.7 Auto EF LV EDV A4C 119.0 mL LV EDV A2C 86.1 mL LV EDV BP 101.1 mL LV ESV A4C 55.8 mL LV ESV A2C 39.2 mL LV ESV BP 46.9 mL LVEF(%) A4C 53.2 % LVEF(%) A2C 54.4 % LVEF(%) BP 53.7 % LV SV A4C 63.3 ml LV SV A2C 46.9 ml LV SV BP 54.3 ml LV CO A4C 4.8 L/min LV CO A2C 3.3 L/min LV CO BP 4.1 L/min HR A4C 76.60 BPM HR A2C 70.56 BPM LV EDV Index (BP) LA Volume LA Length A4C 5.9 cm LA Length A2C 5.8 cm LA Area A4C s 18.55 cm2 LA Area A2C s 18.11 cm2 LA Vol A4C A-L 49.54 mL LA Vol A2C A-L 48.26 mL LA Vol Biplane A-L 49.4 mL LA Vol/BSA A4C A-L LA Vol/BSA A2C A-L LA Vol/BSA BP A-L 25.0 mL/m2 LA Vol A4C MOD 47.4 mL LA Vol A2C MOD 46.0 mL LA Vol BP MOD 47.0 mL RA Volume RA Area A4C 21.4 cm2 RA ESV A4C (A-L) 63.3mL RA Vol/BSA A4C A-L RA Length A4C 6.1 cm RA ESV A4C (MOD) 59.2mL LV Diastology MV E' medial 0.103 (>0.07 m/s) MV E Vmax 0.90 (0.4-1.3 m/s) MV E/E' MED 8.73 (<14) MV A Vmax 0.85 (0.4-1.3 m/s) MV E' lateral 0.087 (>0.1 m/s) E/A Ratio 1.1 MV E/E' LAT 10.24 (<14) MV E' Average 0.095 m/s MV E/E'(average) 9.42 Aortic Valve AoV Vmax 1.59 m/s LVOT Vmax 0.95 m/s AoV Peak Grad 10.1 mmHg LVOT Peak Grad 3.6 mmHg AoV Area (Vmax) 1.83 cm2 LVOT VTI 0.207 m AoV VTI 0.337 m LVOT Mean Grad 2.0 mmHg AoV Mean Joe. 1.11 m/s LVOT SV 63.48 mL AoV Mean Grad 5.6 mmHg LVOT Diam s 1.95 cm AoV Area (VTI) 1.88 cm2 Velocity Ratio 0.60 Mitral Valve MV DT 137 (160-240 msec) MV Vmax TIPS 1.01 m/s MV Mean Grad 1.5 (<2mmHg) MV VTI 0.334 m Pulmonary Valve PV Vmax 1.02 (0.5-1.5 m/s) RVOT Vmax 0.63 m/s PV Peak Grad 4.2 mmHg RVOT Peak Gr. 1.6 mmHg PV Mean Joe 0.81 m/s RVOT VTI 0.129 m PV Mean Grad 2.8 mmHg RVOT Mean Gr. 0.9 mmHg Tricuspid Valve RA Pressure 3.00 mmHg TR Vmax 2.18 m/s TV S' 0.14 m/s TR Peak Grad 19.0 mmHg RVSP (TR) 22.1 mmHg
== END ==
PROVIDERS: PCP Family Medicine; Visit Provider Student in an Organized Health Care Education/Training Program
DX: I50.1 Left ventricular failure, unspecified (principal)
CPT/HCPCS: 93306

== ENCOUNTER → 2025-01-30 15:28 | Outpatient (BNVA) | payer MEDICARE, SELFPAY | PROVIDERS: PCP Family Medicine; Referring Provider Family Medicine; Visit Provider Podiatrist | DX: M79.672 Pain in left foot (principal); M72.2 Plantar fascial fibromatosis; L60.3 Nail dystrophy; B35.1 Tinea unguium; B35.3 Tinea pedis; R25.2 Cramp and spasm; M77.42 Metatarsalgia, left foot | CPT/HCPCS: 20550; 20600; 29540; 64455; J0702; J1100 ==

== ENCOUNTER → 2025-03-06 14:51 | Outpatient (BNVA) | payer MEDICARE, SELFPAY | PROVIDERS: PCP Family Medicine; Referring Provider Family Medicine; Visit Provider Podiatrist | DX: M77.42 Metatarsalgia, left foot (principal); L60.3 Nail dystrophy; B35.1 Tinea unguium; B35.3 Tinea pedis; R25.2 Cramp and spasm; M72.2 Plantar fascial fibromatosis | CPT/HCPCS: 99213 ==